=== PATIENT | male | born 1940 | race Caucasian/White ===

== ENCOUNTER 2016-10-14 22:23 | Inpatient (IN) | payer MEDICARE ==
[~2016-10-14] VITALS: Ht 177.8 cm; Wt 74.4 kg
[2016-10-14 23:01] VITALS: BP 192/54
[2016-10-15] MEDS ORDERED: ZESTRIL40 MG PO (01:00)
[2016-10-15] MEDS ORDERED: CIPRO500 MG PO (01:00)
[2016-10-15] MEDS ORDERED: MIRALAX17 GM PO (01:01)
[2016-10-15] MEDS ORDERED: COREG6.25 MG PO (01:02)
[2016-10-15] MEDS ORDERED: PROSCAR5 MG PO (01:02)
[2016-10-15] MEDS ORDERED: GLUCOPHAGE1000 MG PO (01:03)
[2016-10-15] MEDS ORDERED: GLIPIZIDE10 MG PO (01:03)
[2016-10-15] MEDS ORDERED: FERROUS SULFAT325 MG (01:04)
[2016-10-15] MEDS ORDERED: FERROUS SULFAT325 MG PO (01:05)
[2016-10-15] MEDS ORDERED: ALBUTEROL1.25 MG/3 INH (01:06)
[2016-10-15] MEDS ORDERED: BREO ELLIPTA 21 EACH (01:07)
[2016-10-15] MEDS ORDERED: LIPITOR40 MG PO (01:07)
[2016-10-15] MEDS ORDERED: HYDROCHLOROTH12.5 M1 PO (01:07)
[2016-10-15] MEDS ORDERED: ASPIRIN81 MG PO (01:08)
[2016-10-15] MEDS ORDERED: XALATAN 0.0052.5 ML EACH EYE (01:09)
[2016-10-15] MEDS ORDERED: ZOLOFT50 MG PO (01:09)
--- NOTE | 2016-10-15 01:40 | NUR ---
PATIENT ARRIVED VIA EMS FROM [facility] ER COMPLAINTS OF DEPRESSION, CONFUSION AND SUICIDAL IDEATION. ADMITS TO THOUGHTS OF HOPELESSNESS ABOUT THE FUTURE, WITH FEELINGS OF NOT WANTING TO CARRY ON. WHEN ASKED ABOUT THOUGHTS OF SELF HARM, HE SAYS "IT'S A SIN TO KILL YOURSELF" VERBAL CONTRACT MADE THAT PATIENT WILL NOT SELF HARM. PATIENT HAS A RECENT FRACTURE OF LEFT WRIST. WALKS WITHOUT ASSISTANCE BUT HAS DIZZYNESS WITH AN UNSTEADY GAIT. PATIENT IS DISPLAYING AGITATION AT HOSPITALIZATION, RELUCTANT TO GIVE UP CONTRA-BAND PERSONAL EFFECTS. PATIENT IS DIABETIC AND DAILY SMOKER. FULL CODE AND OWN POA.
[2016-10-15 06:15] LABS: BASOPHILS 0.3 % (0.0-2.0); HEMATOCRIT 38.4 % (42.0-54.0); HEMOGLOBIN 12.4 g/dL (13.5-17.5); IMMATURE GRANULOCYTES 0.2 % (0-5); LYMPHOCYTES 18.4 % (15-50); MCH 26.3 pg (26.0-34.0); MCHC 32.3 g/dL (31.0-37.0); MCV 81.4 fL (80.0-100.0); MEAN PLATELET VOLUME 11.8 fL (7.4-10.4); MONOCYTES 15.8 % (2-11); NEUTROPHILS 63.3 % (40-80); PLATELET COUNT 219 10x3/uL (130-400); RBC 4.72 10x6/uL (4.20-6.10); RDW 16.3 % (11.5-14.5); WBC 10.1 10x3/uL (4.8-10.8)
[2016-10-15 06:30] LABS: HEMOGLOBIN A1C 6.2 % (4.8-6.0)
[2016-10-15 07:00] VITALS: BP 137/73
[2016-10-15 07:27] LABS: ALBUMIN 3.7 g/dL (3.4-5.0); ALKALINE PHOSPHATASE 94 U/L (46-116); ALT (SGPT) 40 U/L (10-68); BILIRUBIN - TOTAL 0.26 mg/dL (0.2-1.3); CALC OSMOLALITY 292 mosm/kg (275-300); CALCIUM 9.5 mg/dL (8.5-10.1); CARBON DIOXIDE 27.8 mmol/L (21.0-32.0); CHLORIDE - SERUM 104 mmol/L (98-107); CHOL - HDL RATIO 1.8 ratio (2.3-4.9); CHOLESTEROL, TOTAL 104 mg/dL (0-200); CREATININE - SERUM 0.9 mg/dL (0.6-1.3); GLUCOSE 139 mg/dL (74-106); HDL CHOLESTEROL 57 mg/dL (32-96); LDL CHOLESTEROL 41 mg/dL (0-100); LDL-HDL RATIO 0.7 ratio (1.5-3.5); POTASSIUM - SERUM 4.3 mmol/L (3.5-5.1); PROTEIN - SERUM 7.4 g/dL (6.4-8.2); SODIUM 142 mmol/L (136-145); TRIGLYCERIDE 31 mg/dL (30-200); UREA NITROGEN 34 mg/dL (7-18); eGFR NON AFRICAN AMERICAN 87 mL/min (90-120)
[2016-10-15 19:30] VITALS: BP 165/71
--- NOTE | 2016-10-15 20:33 | NUR ---
RECEIVED THIS AM AMBULATORY IN ROOM.IS ORIENTED TO SELF AND HOSPITAL.DENIES PLAN TO KILL SELF.IS RESTLESS AND WALKS FREQUENTLY FROM ROOM TO ROOM.ASK MULTIPLE TIMES WHEN HE CAN GO BACK TO HIS ROOM.IS COMPLIANT WITH STAFF. DOES NOT INTERACT WITH PEERS.WILL CONTINUE WITH PLAN OF CARE,MONITOR FOR CHANGES AND SAFETY.
--- NOTE | 2016-10-15 22:23 | NUR ---
B) PATIENT IS NEGATIVE AND CONFUSED, HE FOLLOWS THE NURSE ALL AROUND AND KEEPS ASKING "WHEN AM I GETTING OUT OF HERE" EXPLAINED TO HIM THAT HE WILL SEE THE DR. AND THE DR. WILL DECIDE. PATIENT THEN ASKS "CAN I SLEEP IN THE CHAIR OR WHERE AM I GOING TO SLEEP" EXPLAINED TO HIM HE CAN GO TO BED AFTER EVERYONE HAS MEDS. HE SAID "WELL GIVE ME MY MEDS SO I CAN GO" TOLD HIM HE HAS HAD HIS MEDS AND HE CAN GO TO BED SOON. HE SAID "OH YEAH RIGHT, I GUESS I'LL JUST " PATIENT NOT SUICIDAL, BUT HE MAKES COMMENTS ABOUT AND HE IS EXTREMELY CONFUSED. HE HAS NO IDEA WHY HE IS HERE. I) PROVIDE PRESCRIBED MEDS. R) PATIENT IS COMPLIANT WITH MEDS. P) CONTINUE PLAN OF CARE.
[2016-10-16 07:30] LABS: APPEARANCE HAZY (CLEAR); BILIRUBIN NEGATIVE (NEGATIVE); COLOR YELLOW (YELLOW); GLUCOSE NEGATIVE (NEGATIVE); KETONE NEGATIVE (NEGATIVE); NITRITE NEGATIVE (NEGATIVE); PROTEIN 2+ mg/dL (NEGATIVE); SPECIFIC GRAVITY 1.015 (1.005-1.020); UROBILINOGEN NORMAL (NORMAL)
[2016-10-16 07:31] LABS: BACTERIA FEW /hpf (NONE SEEN); EPITHELIAL CELLS 0-5 /hpf (0-5); GRANULAR CAST OCC /lpf (NONE SEEN); HYALINE CAST OCC /lpf (NONE SEEN); LEUKOCYTE ESTERASE TRACE (NEGATIVE); MUCUS >1+ /lpf (NONE SEEN); RED CELLS - URINE 0-5 /hpf (0-5); WHITE CELLS - URINE 0-5 /hpf (0-5)
[2016-10-16 09:12] VITALS: BP 128/61
--- NOTE | 2016-10-16 13:39 | NUR ---
RECEIVED THIS AM AMBULATORY IN [facility].ORIENTED TO PERSON ,HOSPITAL AND YEAR.LESS RESTLESS TODAY AND VISITS WITH STAFF.VOICES CONCERN THAT HE IS GOING TO LOSE HIS APARTMENT AND CONTENTS.REASSURED HIM THINGS WOULD BE OK.DENIES PLANS TO HURT SELF.WILL CONTINUE WITH PLAN OF CARE,MONITOR FOR CHANGES AND SAFETY.
[2016-10-16 15:00] VITALS: Ht 177.8 cm; Wt 74.4 kg
--- NOTE | 2016-10-16 15:05 | NUR ---
Alert and oriented to name and place. Ambulatory on unit, monitored for saety. Calm and cooperative with care. Administer medications and monitor compliance. Enourage verbalization of feeling and monitor for any suicidial ideations. Verbalizes feelings and concerns, no suicidial ideations, contracted for safety. Compliant with medications. Continue plan of care.
--- NOTE | 2016-10-16 20:12 | NUR ---
RECEIVED IN BEDROOM. SITTING ON EDGE OF BED READING BIBLE. CALM AND COOPERATIVE WITH CARE AND ASSESSMENT. DENIES THOUGHTS OF SELF HARM. ENCOURAGE TO EXPRESS NEEDS. PM MEDS GIVEN ORDERED. RESTING IN BED EYES CLOSED AT THIS TIME. CONTINUE PLAN OF CARE
[2016-10-16 20:23] VITALS: BP 131/66
[2016-10-17 06:13] LABS: RAPID PLASMA REAGIN Non Reactive (Non Reactive)
[2016-10-17 08:13] VITALS: BP 130/56
[2016-10-17 08:19] LABS: VITAMIN D 25 HYDROXY 27.1 ng/mL (30.0-100.0)
[2016-10-17 09:15] LABS: FOLATE (FOLIC ACID) - SERUM 17.2 ng/mL (>3.0)
--- NOTE | 2016-10-17 17:36 | NUR ---
PT CONTINUES TO EXPRESS THOUGHTS AND FEELINGS OF WORTHLESSNESS AND HELPLESSNESS. ENCOURAGED PT TO EXPRESS FEELINGS AND EDUCATED ON COPING SKILLS. ORIENTED TO PERSON, PLACE, AND TIME. UNSURE OF SI, STATED, "I JUST DON'T KNOW WHAT I WOULD DO". CONTRACTED FOR SAFETY. FLAT AFFECT. ISOLATED FROM OTHER PTS. WITHDRAWN. DEPRESSION NOTED. MEDICATIONS ADMINISTERED ORDERED. FALL PRECAUTIONS MAINTAINED. WILL CONTINUE TO MONITOR AND CONTINUE WITH PLAN OF CARE.
[2016-10-17 20:13] VITALS: BP 142/74
--- NOTE | 2016-10-17 23:32 | NUR ---
RECEIVED IN HALLWAY. UNSTEADY GAIT. CHECKED FSBS RESULT 33. RETEST OTHER HAND WAS 34. GAVE 500 ML OF ORANGE JUICE AND FOOD TRAY FROM [facility]. RETESTED IN 45 MINUTES AT 72. PATIENT CONTINUED TO EAT HIS BEDTIME SNACKS. CALM AND COOPERATIVE WITH CARE AND ASSESSMENTS. WHEN ASK IF HE WOULD HARM HIMSELF PATIENT WILL NOT RESPOND TO QUESTIONS. ENCOURAGE TO EXPRESS HIMSELF. PM MEDS GIVEN ORDERED. RESTING EYES CLOSED AT THIS TIME. CONTINUE PLAN OF CARE
--- NOTE | 2016-10-18 08:11 | PSY ---
PATIENT NAME:JULIA FREIRE MEDICAL RECORD: [id number] : 42 LOCATION:[facility] ADMISSION DATE: 10/14/16 ACCOUNT: [id number] PSYCHIATRIC EVALUATION DATE OF EVALUATION: 10/16/16 Initial Psychiatric Workup IDENTIFYING DATA: This is the first fdc admission for this 76-year-old single white male. HISTORY OF PRESENT ILLNESS: This patient was admitted on transfer from [facility] Emergency Department. He had come there with primary complaint of depression and feeling hopeless and that he had nothing to look forward to. He did make suicidal statements while in the Emergency Department there. For this reason, he was transferred. He did not express a concrete plan for suicide, but evinced hopelessness, helplessness and feelings of being lost. Since admission, the patient has been fairly cooperative. He, at times, appears to be confused and disoriented, and will simply follow staff members around. The patient states that he has a sister that is in some way trying to manage his care. He says he lives by himself and does not talk to people very often. ATTENDING PHYSICIAN: Fannie Spencer MD PAST MEDICAL HISTORY: Significant for COPD, chronic tobacco use, hypertension, atherosclerotic heart disease, type 2 diabetes, hyperlipidemia, benign prostatic hyperplasia, chronic anemia, and glaucoma. The patient fractured his right wrist 8 weeks ago and is wearing a brace. MEDICATION: At the time of admission included Xalatan, lisinopril, MiraLax, hydrochlorothiazide, Proscar, Lipitor, Glucophage, Levaquin, Coreg, Glucotrol, and Proventil. FAMILY HISTORY: Noncontributory. SOCIAL HISTORY: The patient denies substance abuse problems. He lives by himself. He is a smoker. He is disabled. ALLERGIES: LISTED KLONOPIN. MENTAL STATUS: On interview, the patient is cooperative, but appears confused. He is somewhat disheveled in appearance and does have multiple bruises. Mood is slightly anxious. Affect is a distant, at times flat. Speech is rather tangential. There are frequent word finding pauses and some word substitution. Content of thought focuses primarily on somatic problems, but also there are expressions of hopelessness and helplessness. The patient is oriented to person and the fact that he is in the [facility]. He is not correctly oriented as to the day of the week. He guesses correctly at the year; however, intermediate and short-term recall and concentration, do show significant deficits and long-term recall appears to be intact. DIAGNOSTIC IMPRESSION: AXIS I: Possible Alzheimer dementia, secondary depression. AXIS II: No diagnosis. AXIS III: Type 2 diabetes, hypertension, chronic obstructive pulmonary disease, hyperlipidemia, anemia, glaucoma, recent wrist fracture, and benign prostatic hyperplasia. AXIS IV: Moderate. AXIS V: 32. PLAN: 1. The patient is admitted for medication adjustment as indicated. 2. Further primary care workup. 3. Daily supportive therapy. 4. Coordinate with family and referring M.D. regarding aftercare. TRANSINT:[id number] Voice Confirmation ID: [id number] DOCUMENT ID: [id number] RAGHU MILTON III, MD at 0811 CC: [id number] DICTATION DATE: 10/16/16 1215 PRINTED CIRCUIT BOARD PANELS DEVELOPER: 10/16/16 1552 ADM IN [facility] [address] [place] [address]
--- NOTE | 2016-10-18 08:11 | PN ---
PATIENT:JULIA FREIRE MEDICAL RECORD: [id number] LOCATION:[facility] ADMISSION DATE: 10/14/16 PROGRESS NOTE DATE OF SERVICE: 10/17/2016 SUBJECTIVE: No new complaint. OBJECTIVE: The significant additional history was obtained by case management. The patient does have a past history of alcoholism as well as a history of bipolar disorder. He is . His ex- is still living. He has 3 children from whom he is estranged. He has been hospitalized in the past for depression and at that time, the diagnosis of bipolar depression was made. The patient did undergo neuropsychological testing today, he scored only 6/30 on the [facility] Mental Status exam, indicated a very severe level of impairment, placement will likely be needed. On exam, mood is somewhat dysphoric. Affect rather constricted. Speech is somewhat rambling. Content of thought is negative for overt psychosis. Sensorium shows no change. ASSESSMENT: No change in diagnosis. PLAN: 1. Continue Lexapro 10 mg daily and Namenda 5 mg b.i.d. 2. Continue other medications and supportive therapy. TRANSINT:[id number] Voice Confirmation ID: [id number] DOCUMENT ID: [id number] RAGHU MILTON III, MD at 0811 CC: [id number] DICTATION DATE: 10/17/16 1230 ETCHER MACHINE: 10/17/16 1907 ADM IN [facility] [address] [place] [address]
[2016-10-18 08:36] VITALS: BP 142/70
--- NOTE | 2016-10-18 09:00 | NUR ---
B) Received pt in dining room for breakfast, appetite good, med compliant, takes meds whole without difficulty, metformin and glipizide held per orders d/t decreased blood glucose, pleasant mood, cooperative with group, memory deficits noted, shaved per PCT per patient request. I) Administer medications as ordered, provide group activity as directed. R) No s/s adverse reaction to meds, participates in group discussion and activities. P) Cont plan of care including meds andd group therapy.
[2016-10-18 19:30] VITALS: BP 136/64
--- NOTE | 2016-10-18 21:55 | PN ---
PATIENT:JULIA FREIRE MEDICAL RECORD: [id number] LOCATION:[facility] ADMISSION DATE: 10/14/16 PROGRESS NOTE DATE OF SERVICE: 10/18/2016 SUBJECTIVE: The patient expresses concern about what is going to happen to him. OBJECTIVE: The patient has continued to voice suicidal ideation and expressions of hopelessness. Case management is working on disposition. On exam, mood is dysphoric. Affect constricted. Speech is low in volume. Content of thought is as noted above. Sensorium shows no change. ASSESSMENT: No change in diagnosis. PLAN: 1. Maintain current medications. 2. Continue supportive therapy. TRANSINT:[id number] Voice Confirmation ID: [id number] DOCUMENT ID: [id number] RAGHU MILTON III, MD at 2155 CC: [id number] DICTATION DATE: 10/18/16 1132 LUGGAGE LINER: 10/18/16 1939 ADM IN [facility] [address] [place] [address]
--- NOTE | 2016-10-18 23:52 | NUR ---
B) Recieved patient sitting in the day room, alert and oriented to self and being in a hospital, calm and cooperative with care and assessment I) Administered perscribed medications, redirected as needed, R) Medication compliant resting now quietly in his room, P) Continue plan of care, continue to monitor.
[2016-10-19 09:32] VITALS: BP 142/66
--- NOTE | 2016-10-19 12:16 | NUR ---
(B)RECEIVED PATIENT SITTING IN A CHAIR AT THE NURSES'S STATION. ORIENTED TO SELF, HOSPITAL AND MONTH. RELATES THE REASON FOR HOSPITALIZATION "MY SISTER DIDN'T LIKE THE WAY I WAS TALKING. IF I DIDN'T GET TO SEE HER ANYMORE I WOULD DO THIS OR I'D DO THAT." RELATES HAS THOUGHT OF SUICIDE "A LITTLE BIT." NO ACTUAL PLAN "DO SOMETHING THAT WOULDN'T HURT. I'M A CHICKEN." SPLINT TO RIGHT WRIST AND RELATES "SMASHED" THUMB ON LEFT HAND WITH PART OF THE NAIL MISSING. (I)ADMINISTER MEDS AND MONITOR COMPLIANCE. OBTAIN VERBAL CONTRACT FOR NO SELF HARM. (R)MED COMPLIANT. CONTRACTS VERBALLY FOR NO SELF HARM. (P)CONTINUE POC AND MAINTAIN FALL PRECAUTIONS.
[2016-10-19 20:24] VITALS: BP 142/63
--- NOTE | 2016-10-20 00:08 | NUR ---
PATIENT IN DAYROOM. THE MHT VIJAY, WAS GETTING WATER FOR MEDICATION ADMINISTRATION WHEN HE BECAME AGITATED AND ACCUSED HER OF TRYING TO KILL EVERYONE. HE WAS REORIENTED, THAN BECAME CALM. CONTINUE TO MONITOR
[2016-10-20 09:28] VITALS: BP 178/91
--- NOTE | 2016-10-20 12:33 | NUR ---
B.) Alert and oriented to name and place, flat affect and sad mood, fair eye contact when speaking with nurse this am. " I'm just tired and lazy." I.) Administer prescribed medications and monitor compliance. Monitor for any signs of depression or suicidial ideations, contract for safety. Encourage group participation and verbalization of feelings. Monitor safety. R.) Compliant with medications, little socialization, withdrawn, did participate in group but did not face the group, back was turned. Was asked if he wanted to go take a shower response " exactually what are you going to do,kill me or something." then at another time while going tyo bathroom. " tell me what yall going to do to me, you can be honest with me." patient with suspicious behavior, flat affect. response to suicidal ideations as " I don't know" has no plan in place. Contracted for no self harm. Splint remains in place to right forearm, no neurovascular compromise assessed. P.) Continue with plan of care and encuragement of verbalizind feelings and group participation.
[2016-10-20 21:50] VITALS: BP 127/63
--- NOTE | 2016-10-21 02:43 | NUR ---
B) Recieved patient in the day room, alert and oriented to self, confused and wanders at times, cooperative with staff, I) Administered perscribed medications, monitored for safety and falls, R) Medication compliant, compliant with unit rules, P) Continue plan of care, continue to monitor.
[2016-10-21 09:43] VITALS: BP 135/75
--- NOTE | 2016-10-21 11:57 | PN ---
PATIENT:JULIA FREIRE MEDICAL RECORD: [id number] LOCATION:[facility] ADMISSION DATE: 10/14/16 PROGRESS NOTE DATE OF SERVICE: 10/20/2016 SUBJECTIVE: The patient's case was discussed with staff. He has no new complaint. OBJECTIVE: The patient denies being suicidal, but has a number of paranoid symptoms about people trying to hurt him. ASSESSMENT: No change in diagnoses. PLAN: Current medicines will be maintained. His long-term prognosis is guarded. Supportive and educational interventions were made. TRANSINT:[id number] Voice Confirmation ID: [id number] DOCUMENT ID: [id number] ZANE NGO MD at 1157 CC: [id number] DICTATION DATE: 10/20/16 1445 HOG SCRAPER: 10/20/16 1903 ADM IN [facility] [address] [place] [address]
--- NOTE | 2016-10-21 13:36 | NUR ---
Alert and oriented to name and place. Quiet with flat affect and sad demeanor. Administer medications and monitor compliance. Monitor for any suicidial ideations. Encourage verbalization of feelings and socialization. Maintain safety. Compliant with medications, but did look at cup for a long time and sat cup down several times without taking medications, re educated on medications and then he took. No suicidial ideations, but states " i don't have to somebody else will be killing me they going to do it, they planning something." patient is delusional thinking somebody is out to get him. Refocused him to where he is and why and discharge plans, " yeah, I know my sister put me her because I neede help, but I did'nt think this kind of help." Sits quietly at day room table and does socialize with MHT and then began reading the paper, occasional eye contact and smile noted. Contracted for no self harm. Cooperative with care. Safety maintained.
--- NOTE | 2016-10-21 17:04 | NUR ---
PATIENT IS WORRIED HE WILL NOT GET HIS PLACE AND THEN HE IS PARANOID ABOUT HIS MEDS, HE SMELLS THEM FIRST AND THEN HE TOOK ONE AND MADE A SOUND AFTER. HE IS WATCHFUL AND HE SAYS "NO ONE WANTS ME TO SIT BY THEM, YOU WATCH THEY'LL HUSSEIN ME OFF".
--- NOTE | 2016-10-21 18:11 | NUR ---
PATIENT'S SISTER VISITED AND BROUGHT HIM CLOTHES. NOW HE IS UPSET HE IS PARANOID, HE BELIEVES ALL THE WOMEN TOOK A VOTE TO MUTILATE HIM OR KILL HIM. I STOOD WITH HIM FOR 30 MINUTES TRYING TO REASSURE HIM THAT HE IS GOING TO BE OK, THE INFORMATION HE HAS IS INCORRECT AND HE IS GOING TO BE HERE WITH US UNTIL HIS DISCHARGE. THEN PATIENT WENT ON A TANGENT ABOUT GETTING OUT FOR A WEEK TO GET THINGS DONE. PATIENT IS DIFFICULT TO UNDERSTAND AND HE IS NOT REDIRECTABLE. HE IS CAUTIOS AND PARANOID ABOUT MEDICATIONS, FOODS AND DRINKS.
[2016-10-21 19:30] VITALS: BP 168/88
--- NOTE | 2016-10-22 02:21 | NUR ---
B) Recieved patient ambulating in the day room and dinning room, alert and oriented to self and being in a hospital, calm and cooperative with care and assessment, I) Administered perscribed medications, monitored for falls and safety, R) Medication compliant, resting now qietly in his room, P) Continue plan of care, continue to monitor.
[2016-10-22 07:00] VITALS: BP 147/62
--- NOTE | 2016-10-22 15:15 | NUR ---
PT RECEIVED LYING IN BED. PT APPEARS LETHARGIC. HE DOES LOOK AT ME AND VERBALLY RESPONDS TO DIRECT QUESTIONS. PT IS QUITE AND WITHDRAWN. HE REFUSED BREAKFAST. HE ATE WELL AT LUNCH. PT DENIES PAIN. NO HALLUCNATIONS ARE NOTED. PT HAS HAD SOME DELUSIONS THIS SHIFT. HE STATES "THEY ARE GOING TO HURT ME" PT WILL NOT ELLABORATE ON WHO HE THINKS IS WANTING TO HURT HIM OR WHY HE THINKS IT. PT IS REDIRECTED AND REORIENTED NEEDED. NO AGGRESSION NOTED. PT IS COOPERATIVE WITH STAFF AND IS COMPLIANT WITH MED'S AND CARE. SAFETY MEASURES ARE IMPLEMENTED. WILL CONTINUE WITH PLAN OF CARE. WILL CONTIUE TO MONITOR.
[2016-10-22 19:30] VITALS: BP 162/88
--- NOTE | 2016-10-22 20:58 | NUR ---
RECEIVED IN DAYROOM. SITTING AT TABLE IN WHEELCHAIR. WHEN ASK ABOUT SELF HARM STATES DEPENDS IF HE HAS TO GO BACK UNDER THE KNIE. REFERRING TO SURGERY. THINKS HE IS GOING TO HAVE A SURGERY ON HIS PROSTATE TONIGHT. STATES HE HAS ALREADY HAD TWO BEFORE. REIFORCE THAT HE IS NOT HAVING ANY SURGERY TODAY AND WOULD CHECK AND SEE IF ANYTHING HAS BEEN PUT IN HIS CHART. CONTINUES TO SIT IN WHEELCHAIR AT TABLE. CONTINUE PLAN OF CARE
[2016-10-23 08:08] VITALS: BP 121/62
--- NOTE | 2016-10-23 10:30 | PN ---
PATIENT:JULIA FREIRE MEDICAL RECORD: [id number] LOCATION:[facility] ADMISSION DATE: 10/14/16 PROGRESS NOTE DATE OF SERVICE: 10/19/2016 SUBJECTIVE: No new complaint. OBJECTIVE: The patient remains withdrawn with a consistently flat affect. He continues to voice expressions of hopelessness and thoughts of . He is very concerned about his situation in particular his relationship with his sister. On exam, mood is dysphoric. Affect is constricted. Speech is low in volume and somewhat tangential. Content of thought as noted above. Sensorium is unchanged. ASSESSMENT: No change in diagnosis. PLAN: 1. We will maintain current medication regimen. 2. Continue supportive therapy. 3. Continue working on aftercare issues. TRANSINT:[id number] Voice Confirmation ID: [id number] DOCUMENT ID: [id number] RAGHU MILTON III, MD at 1030 CC: [id number] DICTATION DATE: 10/19/16 1206 CORRECTION OFFICER PENITENTIARY: 10/19/16 1612 ADM IN [place] [id number] [place] [address]
--- NOTE | 2016-10-23 12:20 | NUR ---
Patient sister Kasandra Shin, present to obtain patient belongings from security, due to need to have patient information to sign him into [facility] and to move belongings from his apartment, ok per patient for her to do so to get all arrangements together. Belongings signed for and released.
--- NOTE | 2016-10-23 16:30 | NUR ---
Received patient this am alert and oriented to name only, flat affect and scanning vision. Administer medications and monitor compliance, monitor for any signs of worsening depression and suicidial ideations. Encourage group participation. Provide one on one time to verbalize fellings. Contract for safety. Monitor safety. Compliant with medications, flat affect with paranoia behavior, makes states such as" i'm not worth anything" " they going to get me anyway." Yall not going to do it to me, I'm not having any surgery, I mean no" Nobody wants me around." isolating during meal time, encouraged patient and directed him to sit with others " they do't want me there." with encouragement patient did eat meals with other peers, no socialization. When provided one on one, he kept insisting we have tricked him into having some sort of surgery and he is mad about it, unable to refocus him to reality versus nonreality. Patient would not answer question regarding if any suicidial ideations, just had a blank stare, but did contract for safety. Safety maintained and monitored throughout the day. Continue plan of care.
--- NOTE | 2016-10-23 16:58 | PN ---
PATIENT:JULIA FREIRE MEDICAL RECORD: [id number] LOCATION:[facility] ADMISSION DATE: 10/14/16 PROGRESS NOTE DATE OF SERVICE: 10/23/2016 SUBJECTIVE: The patient states just waiting to see what they do with me. OBJECTIVE: Staff reports the patient continues to show some paranoid ideation regarding staff from time to time. He tends to make nihilistic statements, but denies suicidal ideation. On exam, mood appears dysphoric and anxious. Affect very constricted. Speech is low in volume and shows frequent latency. Content of thought as noted above. Sensorium unchanged. ASSESSMENT: No change in diagnosis. PLAN: 1. Discontinue Lexapro. 2. Begin Cymbalta 60 mg daily. 3. Continue other medications and supportive therapy. TRANSINT:[id number] Voice Confirmation ID: [id number] DOCUMENT ID: [id number] RAGHU MILTON III, MD at 1658 CC: [id number] DICTATION DATE: 10/23/16 1151 CLERICAL OFFICE WORKER: 10/23/16 1418 ADM IN [place] [id number] [place] [id number]
[2016-10-23 20:00] VITALS: BP 136/57
--- NOTE | 2016-10-23 21:15 | NUR ---
RECEIVED IN DAYROOM. SITTING IN CHAIR. CALM AND COOPERATIVE WITH CARE AND ASSESSMENT. SOCIALIZING WITH STAFF AND PEERS AT TIMES. CONFUSED. WHEN ASK ABOUT SELF HARM HE TALKED ABOUT INSURANCE PAYING HIS BILLS AND NEVER WOULD ANSWER ABOUT SELF HARM. ENCOURAGE TO EXPRESS NEEDS. CONTINUES TO SIT IN CHAIR AT TABLE WITH STAFF AND PEERS.
[2016-10-24 09:06] VITALS: BP 131/55
--- NOTE | 2016-10-24 11:00 | NUR ---
Received this am alert and oriented to name and some what to place. Flat affect. Quiet but cooperative. Administer medications and monitors compliance and effectiveness. Monitor for any signs of suicidial ideations. Encourage verbalization of feeling and provide patient with one on one time. Compliant with medications. Isolated at table and would not talk much with nurse or staff today. Tired and sleepy. Contracted for safety. Safety maintained.
--- NOTE | 2016-10-24 21:26 | NUR ---
RECEIVED IN DAYROOM. SITTING AT TABLE IN WHEELCHAIR. CALM AND COOPERATIVE WITH CARE AND ASSESSMENT. CONFUSED. WHEN ASK ABOUT SELF HARM HE STATED. "DEPENDS ON WHAT THEY DO TO ME. THEY CAME UP LAST NIGHT AND CUT OFF PART OF MY PENIS." REDIRECTED AND REORIENTED. ENCOURAGE TO EXPRESS NEEDS. CONTINUES TO SIT QUIETLY AT TABLE. CONTINUE PLAN OF CARE
[2016-10-24 22:33] VITALS: BP 133/56
--- NOTE | 2016-10-25 10:19 | NUR ---
Nutrition Follow Up: Chart reviewed. Pt is eating 63% meal avg on a regular diet. +BM 10/23/16. No new wt to assess. Labs noted - Glucose WNL for most part. Meds noted including Metformin. Pt with fair po intake at this time. Rec continue current diet. Will continue to provide selective menus and honor food preferences. RD following.
--- NOTE | 2016-10-25 14:44 | NUR ---
B.) Received this am alert and oriented to name only. Flat affect. I.) Administer medications and monitor compliance. Monitor for sign of worsening depression and suicidial ideations. Encourage to verbalize feelings. R.) Compliant with medications, flat affect with little verbalization with staff and peers, will not answer question regarding suicidial ideations and miladis for safety. Delusional, Voice became pressured and patient became irritated, stating " I'm tired of yall cutting on me for nothing, somebody did it, you know who!" Unable to refocus patient to reality the fact that he has not had any surgery. No evidence of reorietation. Safety maintained. P.) Continue plan of care.
[2016-10-25 20:00] VITALS: BP 147/67
--- NOTE | 2016-10-26 00:01 | NUR ---
B) Recieved patient in the day room, alert and oriented to self and hospital, paranoid and confused, restless at times, anxious to go home, worried about his living arrangements after discharge, I) Administered perscribed medications, monitored for safety, R) Medication compliant, resting quietly in bed, P) Continue plan of care,
[2016-10-26 09:05] VITALS: BP 145/70
--- NOTE | 2016-10-26 10:26 | PN ---
PATIENT:JULIA FREIRE MEDICAL RECORD: [id number] LOCATION:[facility] ADMISSION DATE: 10/14/16 PROGRESS NOTE DATE OF SERVICE: 10/24/2016 SUBJECTIVE: No new complaint. OBJECTIVE: The patient continues to speak in very equivocal terms about whether or not he was having thoughts of suicide. At times, he is more fluent and coherent. At other times, shows frankly loosened associations and very rambling speech. He is tolerating his medications quite well. No agitation or combativeness. On exam, mood is somewhat dysphoric. Affect is constricted. Speech is very terse. Content of thought is essentially unchanged. No evidence of acute suicidality. Sensorium is unchanged. ASSESSMENT: No change in diagnosis. PLAN: 1. Maintain current medications. 2. Continue supportive therapy. TRANSINT:[id number] Voice Confirmation ID: [id number] DOCUMENT ID: [id number] RAGHU MILTON III, MD at 1026 CC: [id number] DICTATION DATE: 10/24/16 1221 SHOPPING INVESTIGATOR: 10/24/16 1235 ADM IN [facility] [address] [place] [address]
--- NOTE | 2016-10-26 14:31 | PN ---
PATIENT:JULIA FREIRE MEDICAL RECORD: [id number] LOCATION:[facility] ADMISSION DATE: 10/14/16 PROGRESS NOTE DATE OF SERVICE: 10/25/2016 SUBJECTIVE: The patient's case was discussed with staff. He has no new complaint. OBJECTIVE: The patient is disorganized with limited insight about his condition. He ambulates independently and is still quite paranoid. ASSESSMENT: No change in diagnoses. PLAN: Supportive and educational interventions were made. Medications were reviewed. Long-term prognosis is guarded. TRANSINT:[id number] Voice Confirmation ID: [id number] DOCUMENT ID: [id number] ZANE NGO MD at 1431 CC: [id number] DICTATION DATE: 10/25/16 1431 TEAM TRUCK DRIVER: 10/25/16 1543 ADM IN [place] [id number] [place] [address]
--- NOTE | 2016-10-26 14:47 | NUR ---
(B)RECEIVED PATIENT SITTING IN A CHAIR AT THE NURSE'S STATION. ORIENTED TO SELF ONLY. ASKED PATIENT HOW HE IS FEELING AND PATIENT RELATES "NOT TO GOOD. THIS PLACE HAS A ATTITUDE AND IS GIVING ME ONE TOO." RELATES REASON FOR HOSPITALIZATION "CAN'T TAKE CARE OF MYSELF GOOD ENOUGH." INQUIRED IF HAVING THOUGHTS OF HURTING SELF AND PATIENT REALTES "ALITTLE BIT CAUSE I DON'T HAVE THE STUFF TO KEEP MYSELF CLEAN." PREOCCUPIED WITH HYGIENE AEB "CAN'T KEEP CLEAN SO I STAY TO MYSELF." DELUSIONAL " THEY SAID I USED THEM WOMEN. I HADN'T BEEN ABLE TO BE WITH A WOMAN IN 25 YEARS. I GOT CUT DOWN THERE BECAUSE OF IT." PARANOID AND WOULD NOT GO TO LUNCH RELATING "THEY DON'T WANT ME IN THERE." (I)ADMINISTER MEDS AND MONITOR COMPLIANCE. REFOCUS WITH REALITY BASED INFORMATION FOR DELUSIONAL THOUGHTS AND PREOCCUPATION WITH HYGIENE. (R)MED COMPLIANT. POOR REFOCUSING DUE TO IMPAIRED ABILITY TO SEPARATE REALITY FROM FANTASY. (P)CONTINUE POC AND MAINTAIN FALL PRECAUTIONS.
[2016-10-26 19:30] VITALS: BP 140/57
--- NOTE | 2016-10-26 22:07 | PN ---
PATIENT:JULIA FREIRE MEDICAL RECORD: [id number] LOCATION:[facility] ADMISSION DATE: 10/14/16 PROGRESS NOTE DATE OF SERVICE: 10/26/2016 SUBJECTIVE: The patient is stating that he is worried that he cannot be accepted to [facility] "because they forgot about me." OBJECTIVE: The patient continues to show some paranoid ideation and requires redirection from this. He has not been combative. He denies overtly the desire to harm himself. On exam, mood remains dysphoric. Affect is constricted. Speech is low in volume. Content of thought is still positive for nonspecific paranoid ideation. Sensorium shows no change. ASSESSMENT: No change in diagnosis. PLAN: 1. Add Abilify 10 mg at bedtime. 2. Continue Cymbalta 60 mg daily. 3. Continue other medications and supportive therapy. TRANSINT:[id number] Voice Confirmation ID: [id number] DOCUMENT ID: [id number] RAGHU MILTON III, MD at 2207 CC: [id number] DICTATION DATE: 10/26/16 1150 MEDICAL RECORDS AUDITOR: 10/26/16 1423 ADM IN [facility] [address] [place] [id number]
--- NOTE | 2016-10-27 01:37 | NUR ---
B) Recieved sitting in the day room, alert and withdrawn, confused, paranoid, thinks people want to cut on him, I) Administered perscribed medications, monitored for safety, R) Medication compliant, resting quietly ow, P) Continue plan of care.
[2016-10-27 08:42] VITALS: BP 144/70
--- NOTE | 2016-10-27 14:44 | NUR ---
(B)RECEIVED PATIENT SITTING IN A CHAIR IN HIS ROOM. ORIENTED TO SELF AND PLACE. RELATES THE REASON FOR HOSPITALIZATION IS "MY SISTER SAID I WAS TRYING TO DO SOMETHING TO MYSELF." PATIENT RELATES HE HAD THOUGHTS ABOUT IT HOWEVER NO PLAN. PATIENT STATES "SLIGHTLY" WHEN ASKED IF HAVING CURRENT THOUGHTS OF WANTING TO HARM SELF. THE REASON BEING "CAUSE THE WAY THINGS ARE GOING. NO MATTER WHAT YOU DO ALL SCREWED UP." PLAN STATED BY PATIENT "WEAPON OF SOME KIND. PROBABLY A FIREARM. DON'T KEEP'EM ANYMORE. I DON'T EVEN [place]." (I)ADMINISTER MEDS AND MONITOR COMPLIANCE. OBTAIN VERBAL CONTRACT FOR NO SELF HARM. (R)MED COMPLIANT. VAGUELY CONTRACTS AEB "YEAH I GUESS" WHEN OBTAINING VERBAL NO HARM CONTRACT. (P)CONTINUE POC AND MAINTAIN FALL PRECAUTIONS.
[2016-10-27 19:30] VITALS: BP 147/82
--- NOTE | 2016-10-27 20:45 | NUR ---
B) RECEIVED IN DAYROOM SITTING AT TABLE QUIETLY. CONFUSED AND CALM. NO SIGNS OF AGGRESSION NOTED. I) VSS. ADMINISTER MEDS AND MONITOR FOR SAFETY. R) MEDICATION COMPLIANT. P) CONTINUE PLAN OF CARE.
[2016-10-28 07:44] VITALS: BP 141/64
--- NOTE | 2016-10-28 14:11 | NUR ---
(B)RECEIVED PATIENT SITTING IN A CHAIR AT THE NURSE'S STATION. ORIENTED TO SELF AND PLACE. RELATES HOSPITALIZED "MAYBE CAUSE I WAS THREATENING HARM TO MYSELF AND MY SISTER TURNED IT IN." CONTINUES TO REPORT SI "ALITTLE" IF I DON'T STAY HOSPITALIZED I DON'T HAVE A PLACE TO GO. SOCIALLY WITHDRAWN AND DOES NOT INITIATE CONVERSATION. (I)ADMINISTER MEDS AND MONITOR COMPLIANCE. REORIENT NEEDED. (R)MED COMPLIANT. POOR REORIENTATION DUE TO IMPAIRED ABILITY TO COMPREHEND, PROCESS AND RETAIN INFORMATION. REMAINS SOCIALLY WITHDRAWN. (P)CONTINUE POC AND MAINTAIN FALL PRECAUTIONS.
[2016-10-28 19:40] VITALS: BP 145/101
--- NOTE | 2016-10-28 22:10 | NUR ---
B) Quiet, flat affect, sullen, depressed. Reportedly intermittent SI on previous shift but denies at this time although is very sad. No delusional or paranoid statements made thus far this shift. I) Administer medications as ordered, monitor behavior, assess for SI risk, redirect and reorient PRN, offer emotional reassurance and to express feelings openly and honestly. R) Compliant with medication, remains very depressed, poor concentration. P) Monitor per plan of care.
--- NOTE | 2016-10-29 06:18 | PN ---
PATIENT:JULIA FREIRE MEDICAL RECORD: [id number] LOCATION:[facility] ADMISSION DATE: 10/14/16 PROGRESS NOTE DATE OF SERVICE: 10/27/2016 SUBJECTIVE: No new complaint. OBJECTIVE: The patient continues to isolate himself. He is very pessimistic and exhibits paranoid ideation; however, he is cooperative. On exam, mood is dysphoric. Affect constricted. Speech is rather terse. Content of thought is positive for expressions of helplessness and hopelessness. Sensorium shows no change. ASSESSMENT: No change in diagnosis. PLAN: 1. Continue current treatment plan. 2. Continue supportive therapy. TRANSINT:[id number] Voice Confirmation ID: [id number] DOCUMENT ID: [id number] RAGHU MILTON III, MD at 0618 CC: [id number] DICTATION DATE: 10/27/16 1237 ARMHOLE RAISER LOCKSTITCH: 10/27/16 2112 ADM IN [place] [place] [address]
[2016-10-29 07:48] VITALS: BP 147/61
--- NOTE | 2016-10-29 18:23 | NUR ---
ORIENTED TO PERSON AND PLACE.RESPONDS WITH"I'M SLIGHTLY THINKING ABOUT HURTING MYSELF.MY DADDY FROM A GUN BUT I DON'T HAVE ONE"VOICED CONCERNS OVER NOT KNOWING WHERE HE IS GOING TO LIVE.INFORMED HIM THE PLAN IS [facility].HE VOICES HIS WISH TO GO THERE.STATE"THEY HAVE A COURTYARD WHERE YOU CAN GO OUTSIDE AND WALK."IS COMPLIANT WITH MEDS.BRACE INTACT TO RT WRIST.KEEPS TO SELF.APPETITE GOOD.WILL CONTINUE WITH PLAN OF CARE,MONITOR FOR SAFETY AND CHANGES.
[2016-10-29 19:30] VITALS: BP 143/82
--- NOTE | 2016-10-30 02:11 | NUR ---
PATIENT IN ROOM, LAYING IN BED. COMPLIANT WITH MEDICATION AND CALM. WHEN ASKED ABOUT THOUGHTS OF UPCOMING DISCHARGE, PATIENT WAS REFLECTIVE AND SAID "WELL IF I CAN GET THROUGH ALL THIS B.S. AND NOT GET KICKED ONTO THE STREETS." PATIENT WAS ASSURED THAT WOULD NOT HAPPEN. PATIENT HAS SOME NEGATIVE RESPONSES BUT ALL OVER DEMEANER HAS IMPROVED. PATIENT WAS ACTUALLY PLEASANT AND SAID THANK YOU. CONTINUE TO MONITOR. CONTINUE PLAN OF CARE.
[2016-10-30 07:46] VITALS: BP 139/57
--- NOTE | 2016-10-30 08:45 | PN ---
PATIENT:JULIA FREIRE MEDICAL RECORD: [id number] LOCATION:[facility] ADMISSION DATE: 10/14/16 PROGRESS NOTE DATE OF SERVICE: 10/29/2016 SUBJECTIVE: No new complaint. OBJECTIVE: The patient continues to be rather reclusive. He makes frequent pessimistic statements. On exam, mood is rather dour. Affect is constricted. Speech is low in volume and somewhat tangential. Content of thought is unchanged. Sensorium is unchanged. ASSESSMENT: No change in diagnosis. PLAN: 1. Continue current treatment plan including current medications. 2. Continue supportive therapy. TRANSINT:[id number] Voice Confirmation ID: [id number] DOCUMENT ID: [id number] RAGHU MILTON III, MD at 0845 CC: [id number] DICTATION DATE: 10/29/16828 OIL RAG WASHER: 10/29/16 1048 ADM IN [place] [address] [place] [id number]
--- NOTE | 2016-10-30 16:00 | NUR ---
B.) Alert and oriented to name and place. Cooperative with assessment and made good eye contact. I.) Administer medications and monitor compliance. Monitor for any suicidial ideations. Encourage group participation, provide one on one time to express feelings. Monitor safety. R) Compliant with medications, when asked regarding suicidial ideations response " just alittle" has no plan, " just want to get to a better place." Conversed with staff today and smiled some, read paper and particpated in group. Intiated conversation with staff this pm. Safety maintained. P.) Continue plan of care.
[2016-10-30 20:00] VITALS: BP 125/55
--- NOTE | 2016-10-30 20:14 | NUR ---
RECEIVED IN DAYROOM. SITTING IN CHAIR. CALM AND COOPERATIVE WITH CARE AND ASSESSMENTS. STATES THAT HE WOULD ONLY HARM HIMSELF IF THINGS DIDNT GO GOOD. SOCIAL WITH STAFF BUT CONFUSED. ENCOURAGE TO EXPRESS NEEDS. CONTINUES TO SIT IN CHAIR WITH STAFF AT HIS SIDE. CONTINUE PLAN OF CARE
[2016-10-31 07:25] VITALS: BP 141/59
--- NOTE | 2016-10-31 10:19 | PN ---
PATIENT:JULIA FREIRE MEDICAL RECORD: [id number] LOCATION:[facility] ADMISSION DATE: 10/14/16 PROGRESS NOTE DATE OF SERVICE: 10/30/2016 SUBJECTIVE: The patient still expresses concern about the financial arrangements in terms of his getting in to [facility]. OBJECTIVE: The patient was again reassured that everything has been taking care of. He has had some suicidal statements over the weekend, but no evidence of intent or plan. The patient is cooperative. On exam, mood is initially dysphoric, but as the conversation progresses becomes more euthymic and in fact the patient smile several times. Affect is still constricted. Speech tends to be low in volume and somewhat terse. Content of thought as noted above. Sensorium shows no change. ASSESSMENT: No change in diagnosis. PLAN: 1. Continue current medications. 2. Add Wellbutrin-XL 300 mg daily. 3. Continue supportive therapy. TRANSINT:[id number] Voice Confirmation ID: [id number] DOCUMENT ID: [id number] RAGHU MILTON III, MD at 1019 CC: [id number] DICTATION DATE: 10/30/16 1051 HOTEL OR MOTEL MANAGER: 10/30/16 1504 ADM IN [facility] [address] [place] [id number]
[2016-10-31] MEDS ORDERED: ABILIFY10 MG PO (11:25)
[2016-10-31] MEDS ORDERED: CYMBALTA30 MG PO (11:25)
[2016-10-31] MEDS ORDERED: WELLBUTRIN XL150 M1 PO (11:25)
[2016-10-31] MEDS ORDERED: NAMENDA5 MG PO (11:26)
[2016-10-31] MEDS ORDERED: COLACE100 MG PO (11:26)
--- NOTE | 2016-10-31 12:45 | NUR ---
(B)RECEIVED PATIENT SITTING IN A CHAIR AT THE NURSE'S STATION. ORIENTED TO SELF, HOSPITAL, AND MONTH AND DATE. RELATES REASON FOR HOSPITALIZATION "EXPRESSED TO MY SISTER I WAS GOING TO DO SOMETHING TO MYSELF AND SHE REPORTED IT." WHEN ASKED PATIENT IF STLL HAVING THOUGHTS OF HURTING SELF AND REPLIES "I JUST WANT TO GET OUT OF THIS MESS I'M IN." (I)ADMINISTER MEDS AND MONITOR COMPLIANCE. OBTAIN VERBAL CONTRACT FOR NO SELF HARM. (R)MED COMPLIANT. CONTRACTS VERBALLY FOR NO SELF HARM. (P)CONTINUE POC AND MAINTAIN FALL PRECAUTIONS.
[2016-10-31 19:16] VITALS: BP 132/59
--- NOTE | 2016-10-31 20:04 | NUR ---
RECEIVED IN DAYROOM AT TABLE WITH STAFF AND PEERS. WATCHING TV AT TIMES. WHEN ASK ABOUT SELF HARM STATES "NOT RIGHT NOW." TALKING OUT BEING DISCHARGED TOMORROW. ENCOURAGE TO EXPRESS NEEDS. CONTINUE PLAN OF CARE
[2016-11-01 08:06] VITALS: BP 148/54
--- NOTE | 2016-11-01 10:21 | PN ---
PATIENT:JULIA FREIRE MEDICAL RECORD: [id number] LOCATION:[facility] ADMISSION DATE: 10/14/16 PROGRESS NOTE DATE OF SERVICE: 10/31/2016 SUBJECTIVE: No new complaint. OBJECTIVE: The patient has continued to do well. No further suicidal statements. The patient is interacting much better. On exam, mood is euthymic. Affect is somewhat constricted. Speech is somewhat more fluent. Content of thought is negative for suicidality. Sensorium unchanged. ASSESSMENT: No change in diagnosis. PLAN: 1. Maintain current treatment plan. 2. Anticipate discharge tomorrow. TRANSINT:[id number] Voice Confirmation ID: [id number] DOCUMENT ID: [id number] RAGHU MILTON III, MD at 1021 CC: [id number] DICTATION DATE: 10/31/161136 DIESEL LOCOMOTIVE FIRER/FIREMAN: 10/31/[address] [facility] [address] [place] [address]
--- NOTE | 2016-11-01 19:16 | NUR ---
(B)RECEIVED PATIENT SITTING IN A CHAIR AT THE NURSE'S STATION. ORIENTED TO SELF, HOSPITAL, MONTH AND SITUATION. MORE SOCIAL THIS AM. INTERACTING WITH PEERS. SMILES AND WILL MAKE A JOKE. RELATES IS HERE DUE TO MAKING A STATEMENT OF WANTING TO HURT HIMSELF AND HIS SISTER REPORTED IT. (I)ADMINISTER MEDS AND MONITOR COMPLIANCE. OBTAIN VERBAL CONTRACT FOR NO SELF HARM. (R)MED COMPLIANT. CONTRACTS VERBALLY FOR NO SELF HARM. (P)CONTINUE POC AND MAINTAIN FALL PRECAUTIONS.
[2016-11-01 20:39] VITALS: BP 129/64
--- NOTE | 2016-11-02 00:43 | NUR ---
B) Recieved patient sitting in the day room, alert and oriented to self and being in a hospital, worried about his future arrangements, I) Administered perscribed medications, monitored for falls and safety, redirected as needed, reassured him that he was leaving tomorrow, R) Medication compliant, worried about his clothing P) Continue plan of care, continue to monitor,
--- NOTE | 2016-11-02 03:55 | DS ---
PATIENT:JULIA FREIRE :[birth year] MEDICAL RECORD: [id number] DISCHARGE SUMMARY ADMISSION DATE: 10/14/16 DISCHARGE DATE: DATE OF ADMISSION: 10/14/2016 DATE OF DISCHARGE: 11/01/2016 HISTORY OF PRESENT ILLNESS: First [facility] admission for this 76-year-old single white male. The patient was admitted from [facility]. He had exhibited severe depression and expressions of hopelessness and suicidality. The patient also gave evidence of significant memory change as well. For further details, please see previously dictated history. COURSE IN THE HOSPITAL: The patient was seen in consultation by Dr. Hanson who noted the presence of COPD, hypertension, atherosclerotic heart disease, type 2 diabetes, hyperlipidemia, benign prostatic hypertrophy, anemia, glaucoma and recent fracture of the right wrist 8 weeks prior to admission. From the outset, the patient presented a treatment challenge because of his extreme dysphoria and pessimism. He exhibited moderate delusional ideation, probably secondary to his profound depression. He did give clear-cut evidence of dementia as evidenced by neuropsychological testing. In terms of treatment for his depression, he was started on Cymbalta 60 mg daily. At a later time Abilify 10 mg at bedtime was added for an enhanced antidepressant effects, still later Wellbutrin-XL 300 mg was added. Following this final medication adjustment, the patient began to show significantly elevated mood. He was much more engaging and cooperative with staff and most importantly no longer made suicidal statements. The patient was free of nihilistic or suicidal statements for about 5 days prior to discharge. The patient was maintained on other nonpsychiatric medications including Colace, Xalatan eyedrops, MiraLax, Lisinopril 40 mg daily for hypertension, hydrochlorothiazide 12.5 mg daily, Proscar 5 mg daily, Lipitor 40 mg daily, aspirin 81 mg daily, Glucophage 1000 mg twice a day, Coreg 6.25 mg twice a day and albuterol inhaler on a p.r.n. basis. Considerable effort was expended in getting the patient admitted to a local jail. By the time of discharge, the patient was stable. FINAL DIAGNOSES: AXIS I: Vascular dementia, major depressive disorder. AXIS II: No diagnosis. AXIS III: Type 2 diabetes, hypertension, chronic obstructive pulmonary disease, hyperlipidemia, anemia, glaucoma, recent wrist fracture, benign prostatic hyperplasia. AXIS IV: Moderate. AXIS V: 40. PLAN: 1. The patient is discharged on current medications. 2. Diet and activities as tolerated. 3. Follow up with primary care physician assigned to the jail. TRANSINT:[id number] Voice Confirmation ID: [id number] DOCUMENT ID: [id number] DISCHARGE SUMMARY REPORT [id number] JULIA FREIRE III, RAGHU Lozoya MD at 0355 CC: [id number] DICTATION DATE: 11/01/161119 COPYING MACHINE MECHANIC: 11/02/16 0124 ADM IN [facility] [address] [place] [id number]
--- NOTE | 2016-11-02 07:48 | NUR ---
REPORT CALLED TO JOVANI CRUM LPN. DISCHARGE PAPERWORK SIGNED.
--- NOTE | 2016-11-02 08:00 | NUR ---
(B)RECEIVED PATIENT SITTING IN A CHAIR AT THE NURSE'S STATION. ORIENTED TO SELF AND PLACE. COOPERATIVE WITH DISCHARGE PLANS. SOCIAL AND PLEASANT AFFECT. CALM AND COOPERATIVE. (I)ADMINISTER MEDS AND MONITOR COMPLIANCE, OBTAIN VERBAL CONTACT FOR NO SELF HARM. (R)MED COMPLIANT. CONTRACTS VERBALLY FOR NO SELF HARM. (P)CONTINUE POC.
--- NOTE | 2016-11-03 13:38 | PN ---
PATIENT:JULIA FREIRE MEDICAL RECORD: [id number] LOCATION:[facility] ADMISSION DATE: 10/14/16 PROGRESS NOTE DATE OF SERVICE: 11/02/2016 SUBJECTIVE: The patient's case was discussed with staff. He has no new complaint. OBJECTIVE: The patient is in good behavioral control with limited insight about his condition. ASSESSMENT: No change in diagnoses. PLAN: The patient will be transitioned out of the hospital today. He has no symptoms that represent a significant risk to himself or others, but his cognitive impairment does require significant supervision. TRANSINT:[id number] Voice Confirmation ID: [id number] DOCUMENT ID: [id number] ZANE NGO MD at 1338 CC: [id number] DICTATION DATE: 11/02/16 1255 LOCKER ATTENDANT: 11/02/16 1455 DIS IN 11/02/16 [facility] [address] [place] [address]
== END 2016-11-02 09:30 | DRG 881 ==
LOC: D.PSYCH 22:23
PROVIDERS: ADMIT Psychiatry & Neurology Psychiatry
DX: F32.9 Major depressive disorder, single episode, unspecified (principal); G30.9 Alzheimer's disease, unspecified; F02.80 Dementia in other diseases classified elsewhere, unspecified severity, without behavioral disturbance, psychotic disturbance, mood disturbance, and anxiety; F01.50 Vascular dementia, unspecified severity, without behavioral disturbance, psychotic disturbance, mood disturbance, and anxiety; I25.10 Atherosclerotic heart disease of native coronary artery without angina pectoris; K59.00 Constipation, unspecified; D64.9 Anemia, unspecified; N40.0 Benign prostatic hyperplasia without lower urinary tract symptoms; H40.9 Unspecified glaucoma; E11.40 Type 2 diabetes mellitus with diabetic neuropathy, unspecified; J44.9 Chronic obstructive pulmonary disease, unspecified; E78.5 Hyperlipidemia, unspecified; I10 Essential (primary) hypertension; K64.9 Unspecified hemorrhoids; Z72.0 Tobacco use

== ENCOUNTER 2016-11-08 16:30 | Inpatient (IN) | payer MEDICARE ==
[~2016-11-08] VITALS: Ht 177.8 cm; Wt 70.3 kg
[~2016-11-08 16:30] MED LIST: ABILIFY10 MG PO; ALBUTEROL1.25 MG/3 INH; ASPIRIN81 MG PO; BREO ELLIPTA 21 EACH; CIPRO500 MG PO; COLACE100 MG PO; COREG6.25 MG PO; CYMBALTA30 MG PO; FERROUS SULFAT325 MG; FERROUS SULFAT325 MG PO; GLIPIZIDE10 MG PO; GLUCOPHAGE1000 MG PO; HYDROCHLOROTH12.5 M1 PO; LIPITOR40 MG PO; MIRALAX17 GM PO; NAMENDA5 MG PO; PROSCAR5 MG PO; WELLBUTRIN XL150 M1 PO; XALATAN 0.0052.5 ML EACH EYE; ZESTRIL40 MG PO; ZOLOFT50 MG PO
[2016-11-08 17:35] LABS: BASOPHILS 0.1 % (0.0-2.0); HEMATOCRIT 36.7 % (42.0-54.0); HEMOGLOBIN 11.9 g/dL (13.5-17.5); IMMATURE GRANULOCYTES 0.2 % (0-5); LYMPHOCYTES 8.7 % (15-50); MCH 26.6 pg (26.0-34.0); MCHC 32.4 g/dL (31.0-37.0); MCV 81.9 fL (80.0-100.0); MEAN PLATELET VOLUME 11.3 fL (7.4-10.4); MONOCYTES 9.7 % (2-11); NEUTROPHILS 80.3 % (40-80); PLATELET COUNT 214 10x3/uL (130-400); RBC 4.48 10x6/uL (4.20-6.10); RDW 15.2 % (11.5-14.5); WBC 12.3 10x3/uL (4.8-10.8)
[2016-11-08 17:52] LABS: ALBUMIN 2.6 g/dL (3.4-5.0); ALKALINE PHOSPHATASE 86 U/L (46-116); ALT (SGPT) 42 U/L (10-68); BILIRUBIN - TOTAL 0.34 mg/dL (0.2-1.3); CALC OSMOLALITY 292 mosm/kg (275-300); CALCIUM 9.4 mg/dL (8.5-10.1); CHLORIDE - SERUM 104 mmol/L (98-107); POTASSIUM - SERUM 4.2 mmol/L (3.5-5.1); PROTEIN - SERUM 6.9 g/dL (6.4-8.2); SODIUM 142 mmol/L (136-145); UREA NITROGEN 25 mg/dL (7-18); eGFR NON AFRICAN AMERICAN 77 mL/min (90-120)
[2016-11-08 17:56] LABS: GLUCOSE 204 mg/dL (74-106)
[2016-11-08 18:02] LABS: CHOL - HDL RATIO 1.7 ratio (2.3-4.9); CHOLESTEROL, TOTAL 96 mg/dL (0-200); CKMB 1.1 U/L (0.0-3.6); CREATINE KINASE 41 UL (21-232); HDL CHOLESTEROL 56 mg/dL (32-96); LDL CHOLESTEROL 32 mg/dL (0-100); LDL-HDL RATIO 0.6 ratio (1.5-3.5); TRIGLYCERIDE 40 mg/dL (30-200); TROPONIN-I 0.018 ng/mL (0.000-0.060)
--- NOTE | 2016-11-08 23:12 | NUR ---
ADMIT TO ROOM 2115 FROM ER VIA WHEELCHAIR. ALERT. ASSISTED TO BED. ADMISSION HISTORY AND ASSESSMENT INITIATED. PLAN OF CARE IMPLEMENTED.
--- NOTE | 2016-11-09 00:33 | NUR ---
PT NOW RESTING IN BED, HAVE PLACED TELEMETRY ON HIM AND HE IS ST/101 WITH PVCS. PT IS CONFUSED TO PLACE/TIME AND SITUATION. HE THINKS THE TELEMETRY UNIT IS A BOMB. ORIENTED TO THE TELEMETRY UNIT AND ITS PURPOSE. BED ALARM ACTIVATED. WILL MONITOR.
[2016-11-09 02:54] VITALS: BP 127/58; BMI 22.2
--- NOTE | 2016-11-09 04:06 | NUR ---
PT AWAKE AND UP AT NURSING STATION. CONFUSED, CANNOT BE REORIENTED. WENT INTO ANOTHER PATIENT'S ROOM AND TURNED OVER HER BEDSIDE TABLE AND TOOK OUT HER BEDSIDE DRESSER DRAWERS. STAFF INTERVENED AND RETURNED PT TO HIS ROOM. HE WOULD NOT GET IN BED AND WOULD ONLY STAY IN BEDSIDE CHAIR OR RECLINER FOR A FEW BRIEF MINUTES BEFORE GETTING UP AND HEADING OUT HIS DOOR AGAIN. PT NOW STANDING.
[2016-11-09] MEDS ORDERED: ABILIFY10 MG PO (04:35)
--- NOTE | 2016-11-09 04:46 | NUR ---
ALLOWED PT TO WALK THE HALLWAY BY THE NURSES STATION WITH STAFF OBSERVING HIM. HE TURNED AND WALKED OUT OF SIGHT AND WHEN STAFF WENT TO GET HIM, HE COULD NOT BE LOCATED. BEGAN TO SEARCH HALLWAY BETWEEN UNITS AND WAS TOLD BY OTHER UNIT THAT THEY HAD SEEN A MAN OF HIS DESCRIPTION PASS JUST SECONDS AGO. SHAREPOINT SOLUTIONS DEVELOPER FROM MED SUR[facility] THEN HEARD THE EXIT DOOR ALARM RINGING AND STAFF IMMEDIATELY TO DOOR, DOWN THE STAIRS AND OUTSIDE WHERE PT WAS FOUND SITTING ON THE GROUND. WHEELCHAIR BOUGHT OUTSIDE AND PT PLACED IN IT AND BROUGHT BACK UP TO THE UNIT. NOTIFIED ICT PROJECT MANAGER. PAGE TO DR CRUZ AT 2622. AWAITING RETURN CALL. RETURN CALL FROM DR CRUZ AT 7288, REPORTED ALL OF PT'S ACTIVITIES AND RECIEVED ORDER FOR ATIVAN 0.5MG BY MOUTH THREE TIMES DAILY SCHEDULED.
--- NOTE | 2016-11-09 06:00 | NUR ---
PHONE CALL TO PT'S LISTED SISTER AND SPOKE WITH HER (MATHIEU). OBTAINED A PHONE NUMBER FROM HER TO BE ABLE TO SPEAK TO PATIENT'S SON. PHONE CALL TO SON, KRYSTEN, AND SPOKE WITH HIM ABOUT PT'S ACTIVITIES/BEHAVIORS. ALSO CLARIFIED THAT PT WOULD BE ABLE TO TAKE ATIVAN AND NOT HAVE AN ALLERGIC REACTION. SON IS NOT SURE WHY IT SAYS HE IS ALLERGIC TO [facility], AND IS OKAY WITH MED ORDERED BY DR CRUZ.
[2016-11-09 08:22] VITALS: BP 122/64
--- NOTE | 2016-11-09 10:09 | NUR ---
UP IN W/C AT NURSES STATION. VERY CONFUSED AND ANXIIOUS. WILL CONT. TO MONITOR.
[2016-11-09 11:46] VITALS: BP 104/73
--- NOTE | 2016-11-09 11:57 | NUR ---
Patient Name: JULIA FREIRE Encounter No: [id number] : 1940 Primary Insurance: MEDICARE A & B Anticipated DC Date: Planned Disposition: Nursing Facility KEO Cert External Planned Provider: [facility], [employer] MACHINE MECHANIC C[employer] MEDICAID BED DISCHARGE PLANNING NOTE: * Is the patient Alert and Oriented? No 0 * How many steps to enter\\exit or inside your home? NONE 0 * PCP DR. CRUZ 0 * Pharmacy [facility] 0 * Preadmission Environment Intermediate Assisted 0 * Facility Name [facility] 0 * ADLs Partial Dependent 0 * Partial ADLs (Assistance needed) Bathing Medication Management 0 * Equipment Other 0 * Other Equipment ALL MEDICAL EQUIPMENT PROVIDED BY FACILITY 0 * List name and contact numbers for known caregivers / representatives who currently or will assist patient after discharge: KRYSTEN FREIRE, SON , PEGGY, SISTER, 0 * Community resources currently utilized None 0 * Please name any agencies selected above. NONE 0 * Additional services required to return to the preadmission environment? Yes * Can the patient safely return to the preadmission environment? Yes 0 * Has this patient been hospitalized within the prior 30 days at any hospital? Yes 0 CM MET WITH PT AT NURSES STATION TO DISCUSS DISCHARGE PLANNING AND NEEDS. PT ORIENTED TO SELF ONLY. PT IN WHEELCHAIR AT NURSES STATION FOR ONE ON ONE SUPERVISION. PT REPORTS LIVING AT [facility] FOR THE LAST COUPLE OF MONTHS. PT HAS NO MEDICAL EQUIPMENT AND STATES HE USES NONE AT [facility]. PT DENIES DISCHARGE NEEDS AND IS SURE HE WILL RETURN TO THE SNF AT DISCHARGE. BARBARA DISCUSSED ALF AT [place], PT REMEMBERS GOING "DOWN THERE" RECENTLY AND STATES THERE WAS A HOT BERTIN RACE AND HE GOT TO WATCH. PT BEGAN TALKING ABOUT OTHER THINGS IN HIS PAST. CM ATTEMPTED REDIRECTION WITHOUT SUCCESS AND ASKED PT WHO ASSISTS WITH DECISIONS, PT STATES TO CALL HIS SON KRYSTEN. PT DOES NOT KNOW WHAT ALF DID FOR HIM AND DOES NOT KNOW HOW LONG HE WAS "DOWN THERE". CM CALLED KRYSTEN FREIRE, , TO DISCUSS POSSIBILITY OF PT GOING BACK TO ALF AND DISCUSS DISCHARGE PLANNING. CM LEFT MESSAGE ASKING FOR RETURN CALL. BARBARA CALLED ZACHARY CLINICAL LIAISON FOR [facility], , VERIFIED PT IS RESIDENT OF [facility]; ZACHARY ADVISED PT WAS JUST DISCHARGED OUT OF ALF BACK TO [facility]. ZACHARY ADVISED THAT [facility] WILL ACCEPT PT BACK AT DISCHARGE. FOR DISCHARGE BACK TO [facility], FAX DISCHARGE INFORMATION TO [facility] AT [phone]; NURSE REPORT TO BE CALLED TO [facility] AT [phone]. [facility] TO ARRANGE VAN TRANSPORT. Fletcher Nava, CASE MANAGEMENT
[2016-11-09 13:17] VITALS: Ht 177.8 cm; Wt 70.3 kg
[2016-11-09 16:03] VITALS: BP 129/57
--- NOTE | 2016-11-09 16:59 | NUR ---
Patient Name: JULIA FREIRE Encounter No: [id number] : 1940 Primary Insurance: MEDICARE A & B Anticipated DC Date: Planned Disposition: Nursing Facility [facility] External Planned Provider: JULIO C JUAREZS, LONG TERM MEDICAID BED DCP follow-up note: CM RECEIVED CALL FROM KRYSTEN TANI, , AND DISCUSSED DISCHARGE PLANNING. PLAN IS FOR PT TO RETURN TO [facility] FOR CONTINUED BEHAVIORAL HEALTH ASSISTANT CARE. BARBARA DISCUSSED POSSIBLE LONG-TERM PLACEMENT; KRYSTEN IS IN AGREEMENT IF RECOMMENDED BY THE DOCTOR HE FEELS PT MAY BE ON TOO MUCH OR THE WRONG MEDICATIONS REPORTING HIS FATHER SEEMS TO BE "DRUGGED UP." KRYSTEN REPORTS PT HAS BEEN IN LONG-TERM RECENTLY AND THEY ARE FAMILIAR WITH SERVICES THERE. FOR DISCHARGE BACK TO [facility], FAX DISCHARGE INFORMATION TO [facility] AT [phone]; NURSE REPORT TO BE CALLED TO [facility] AT [phone]. [facility] TO ARRANGE VAN TRANSPORT. Fletcher Nava, CASE MANAGEMENT
[2016-11-09] MEDS ORDERED: OMNICEF300 MG PO (18:33)
--- NOTE | 2016-11-09 20:19 | NUR ---
REPORT CALLED TO JEANNINE AND NIGHT MEDS GIVEN.
== END 2016-11-09 20:19 | disposition short-term general hospital (02) | DRG 190 ==
LOC: D.ER 16:30 → D.M2 22:00
PROVIDERS: Emergency Medicine; ADMIT Family Medicine
DX: J44.0 Chronic obstructive pulmonary disease with (acute) lower respiratory infection (principal); J18.9 Pneumonia, unspecified organism; F01.51 Vascular dementia, unspecified severity, with behavioral disturbance; Z72.0 Tobacco use; I10 Essential (primary) hypertension; I25.10 Atherosclerotic heart disease of native coronary artery without angina pectoris; E11.9 Type 2 diabetes mellitus without complications; E78.5 Hyperlipidemia, unspecified; D64.9 Anemia, unspecified; N40.0 Benign prostatic hyperplasia without lower urinary tract symptoms; H40.9 Unspecified glaucoma; K59.00 Constipation, unspecified; F32.9 Major depressive disorder, single episode, unspecified

== ENCOUNTER 2016-11-09 20:41 | Inpatient (IN) | payer MEDICARE ==
[~2016-11-09] VITALS: Ht 177.8 cm; Wt 65.3 kg
[~2016-11-09 20:41] MED LIST changes: +OMNICEF300 MG PO
--- NOTE | 2016-11-10 02:31 | NUR ---
Recieved patient via wheelchair from Med II, alert and oriented to self, HS medications given on med II, oriented to unit, ambulates without assist, belongings inventoried, will continue to monitor.
[2016-11-10 04:04] VITALS: BP 136/58; BMI 20.7
[2016-11-10 07:00] LABS: BASOPHILS 0.2 % (0.0-2.0); HEMATOCRIT 35.3 % (42.0-54.0); HEMOGLOBIN 11.5 g/dL (13.5-17.5); IMMATURE GRANULOCYTES 0.1 % (0-5); LYMPHOCYTES 17.2 % (15-50); MCH 26.4 pg (26.0-34.0); MCHC 32.6 g/dL (31.0-37.0); MCV 81.1 fL (80.0-100.0); MEAN PLATELET VOLUME 11.7 fL (7.4-10.4); MONOCYTES 12.2 % (2-11); NEUTROPHILS 68.3 % (40-80); PLATELET COUNT 235 10x3/uL (130-400); RBC 4.35 10x6/uL (4.20-6.10); RDW 15.3 % (11.5-14.5)
[2016-11-10 07:05] LABS: WBC 8.8 10x3/uL (4.8-10.8)
[2016-11-10 07:12] LABS: HEMOGLOBIN A1C 7.2 % (4.8-6.0)
[2016-11-10 07:36] LABS: ALBUMIN 2.6 g/dL (3.4-5.0); ALKALINE PHOSPHATASE 81 U/L (46-116); ALT (SGPT) 39 U/L (10-68); BILIRUBIN - TOTAL 0.44 mg/dL (0.2-1.3); CALCIUM 9.4 mg/dL (8.5-10.1); CARBON DIOXIDE 29.2 mmol/L (21.0-32.0); CHLORIDE - SERUM 107 mmol/L (98-107); CHOLESTEROL, TOTAL 100 mg/dL (0-200); CREATININE - SERUM 0.8 mg/dL (0.6-1.3); HDL CHOLESTEROL 51 mg/dL (32-96); LDL CHOLESTEROL 37 mg/dL (0-100); LDL-HDL RATIO 0.7 ratio (1.5-3.5); POTASSIUM - SERUM 3.8 mmol/L (3.5-5.1); PROTEIN - SERUM 6.9 g/dL (6.4-8.2); SODIUM 146 mmol/L (136-145); TRIGLYCERIDE 62 mg/dL (30-200); UREA NITROGEN 29 mg/dL (7-18); eGFR NON AFRICAN AMERICAN > 90 mL/min (90-120)
[2016-11-10 07:44] LABS: CALC OSMOLALITY 295 mosm/kg (275-300); GLUCOSE 84 mg/dL (74-106)
[2016-11-10 09:32] VITALS: BP 122/70
--- NOTE | 2016-11-10 11:30 | NUR ---
B) PATIENTS SISTER CALLED AND SHE SAID SHE FELT LIKE JULIA SHOULD BE TAKEN OFF OF HIS SCHIZOPHRENIC MEDICATION. LOOKED AT PATIENTS MED LIST AND EXPLAINED THAT HE WAS NOT ON ANY SCHIZOPHRENIC MEDS. SHE SAID "WELL, I HAVE THE NAME OF IT" SHE SPELLED ARIPIPRAZOLE, EXPLAINED TO HER THAT THAT MEDICATION FOR HIM IS USED FOR HIS DEPRESSION. SHE SAID SHE FELT LIKE THIS MED MADE HIM WORSE, EXPLAINED TO HER THAT I WOULD LET THE PSYCHIATRIST KNOW HER CONCERNS, BUT IT WOULD BE UP TO THE DR. TO DECIDE THE MEDICATIONS FOR THE PATIENT. PATIENT IS AWAKE AND HE KNOWS HIS NAME AND KNOWS HE IS IN A HOSPITAL, HE IS NOT SURE THE NAME OF IT. HE IS SAD, FLAT TO BLUNTED AND DEPRESSED. ISOLATIVE AND WITHDRAWN. HE AMBULATES INDEPENDENTLY. I) PROVIDE PRESCRIBED MEDS. R) PATIENT IS COMPLIANT WITH MEDS, HE HAS NOT SHOWN ANY AGGRESSION OR ANY PARANOIA TODAY. P) CONTINUE PLAN OF CARE.
[2016-11-10 14:47] VITALS: Ht 177.8 cm; Wt 65.3 kg
[2016-11-10 19:31] VITALS: BP 116/51
--- NOTE | 2016-11-11 03:46 | PSY ---
PATIENT NAME:JULIA FREIRE MEDICAL RECORD: [id number] : 42 LOCATION:[facility] ADMISSION DATE: 11/09/16 ACCOUNT: [id number] PSYCHIATRIC EVALUATION DATE OF EVALUATION: 11/10/16 IDENTIFYING DATA: A second [facility] admission for this 76-year-old single white male. HISTORY OF PRESENT ILLNESS: This patient was recently admitted to [facility] between 10/14/2016 and 11/02/2016. He carries a diagnosis of vascular dementia as well as depression. At the time of the original admission, the patient was essentially homeless. During the course of hospitalization, the patient was stabilized and placed on antidepressant medication and placed in a snf. The patient was readmitted because of chest pain. On this occasion, he was admitted initially to the medical floor. He was noted to be extremely confused, wandering, exit seeking and easily agitated. Once the patient was stabilized medically, he was transferred back to [facility]. PAST MEDICAL HISTORY: Significant for hypertension, COPD, atherosclerotic heart disease, type 2 diabetes, hyperlipidemia, benign prostatic hyperplasia, anemia, glaucoma, and acute pneumonitis. FAMILY HISTORY: Noncontributory. SOCIAL HISTORY: The patient is a snf resident. No history of recent substance abuse problems. He has a sister who is involved in his care. He is disabled. ALLERGIES: LISTED KLONOPIN. MENTAL STATUS EXAMINATION: On interview, the patient appears to be in a dysphoric mood. Affect is overall constricted. Speech is terse and somewhat tangential. Content of thought is positive for expressions of hopelessness. On sensorium testing, the patient is oriented to person and the fact that he is hospitalized at [facility] [facility]. He is not oriented correctly as to time. Memory shows global impairment at all areas. Insight is very limited. DIAGNOSTIC IMPRESSION: AXIS I: Vascular dementia, secondary depression. AXIS II: No diagnosis. AXIS III: Hypertension, chronic obstructive pulmonary disease, type 2 diabetes, hyperlipidemia, anemia, glaucoma, benign prostatic hyperplasia. AXIS IV: Moderate. AXIS V: 36. PLAN: 1. The patient is admitted for medication revision as indicated. 2. Diet and activity as tolerated. 3. Daily supportive therapy. TRANSINT:[id number] Voice Confirmation ID: [id number] DOCUMENT ID: [id number] YOAN RIVERA, RAGHU Lozoya MD at 0346 CC: [id number] DICTATION DATE: 11/10/16 1205 FRONT DESK COORDINATOR: 11/10/16 1239 ADM IN [facility] [address] [id number]
[2016-11-11 06:13] LABS: RAPID PLASMA REAGIN Non Reactive (Non Reactive)
[2016-11-11 08:09] VITALS: BP 130/62
[2016-11-11 08:16] LABS: FOLATE (FOLIC ACID) - SERUM 15.7 ng/mL (>3.0)
--- NOTE | 2016-11-11 18:30 | NUR ---
SEE ASSESSMENT FLOW SHEET.HAS BEEN CALM AND COMPLIANT WITH STAFF AND PEERS TODAY.HAS 3 HEALING SCABBED SORES TO LEFT FOREARM,NO SIGNS OF INFECTION.WILL CONTINUE WITH PLAN OF CARE,MONITOR FOR CHANGES AND SAFETY.
[2016-11-11 19:30] VITALS: BP 128/57
--- NOTE | 2016-11-11 21:00 | NUR ---
REPORT RECEIVED AND CARE ASSUMED. AMBULATES INDEPENDENTLY. REMAINS CALM AND COOPERATIVE WITH STAF AND CARE. ASSESSMENT COMPLETED PER FLOW SHEET. HE IS MEDICATION COMPLIANT. REMAINS CONFUSED TONIGHT. CONTINUE PLAN OF CARE.
[2016-11-12 07:54] VITALS: BP 130/46
[2016-11-12 19:30] VITALS: BP 101/52
--- NOTE | 2016-11-12 20:31 | NUR ---
RECEIVED IN DAYROOM. SITTING IN CHAIR AT TABLE WITH STAFF AND PEERS AT HIS SIDE. CALM AND COOPERATIVE WITH CARE AND ASSESSMENTS. ENCOURAGE TO EXPRESS NEEDS. CONTINUES TO SIT QUIETLY IN CHAIR. CONTINUE PLAN OF CARE
--- NOTE | 2016-11-12 21:40 | NUR ---
Patient was resting in dayroom, compliant with medication. Oriented to Self and place. Patient reoriented. He has been calm but isolated. continue to monitor.
[2016-11-13 07:10] LABS: VITAMIN D 25 HYDROXY 19.8 ng/mL (30.0-100.0)
--- NOTE | 2016-11-13 07:36 | PN ---
PATIENT:JULIA FREIRE MEDICAL RECORD: [id number] LOCATION:[facility] ADMISSION DATE: 11/09/16 PROGRESS NOTE DATE OF SERVICE: 11/11/2016 SUBJECTIVE: No new complaint. OBJECTIVE: The patient continues to show extremely constricted affect. He has been passively cooperative, but remains confused. On exam, mood is dysphoric, affect is constricted. Speech is low in volume and terse. Content of thought is positive for expressions of hopelessness. Sensorium shows no change. ASSESSMENT: No change in diagnosis. PLAN: 1. Maintain current medication. 2. Continue supportive therapy. TRANSINT:[id number] Voice Confirmation ID: [id number] DOCUMENT ID: [id number] RAGHU MILTON III, MD at 0736 CC: [id number] DICTATION DATE: 11/11/16 1140 VANSTONE MACHINE OPERATOR: 11/11/16 1620 ADM IN [facility] [address] [place] [address]
[2016-11-13 08:02] VITALS: BP 143/86
--- NOTE | 2016-11-13 08:05 | NUR ---
B.) Alert and oriented to nam only, some what to place. " I think in hospital some where, because my sister turned it in that I was going to hurt myself." I.) Administer medications and monitor compliance, redirect and reorinet as need. Monitor for any suicidial ideations and contract for safety. Monitor for any exit seeking behavior. R.) Compliant with medications. Reorients to place, no suicidial ideations, contracted for no self harm. Sits quietly at table. Safety maintained. P.) Continue with plan of care.
[2016-11-13 19:30] VITALS: BP 136/62
--- NOTE | 2016-11-13 20:43 | NUR ---
RECEIVED IN DINING ROOM AREA. SITTING IN A CHIAR WITH EYES CLOSED. RESPONDS TO VOICE. CALM AND COOPEATIVE WITH CARE AND ASSESSMENTS. CONFUSED. REORIENT NEEDED. ENCOURAGE TO EXPRESS NEEDS. CONTINUE PLAN OF CARE
[2016-11-14 07:00] VITALS: BP 138/61
--- NOTE | 2016-11-14 08:36 | PN ---
PATIENT:JULIA FREIRE MEDICAL RECORD: [id number] LOCATION:[facility] ADMISSION DATE: 11/09/16 PROGRESS NOTE DATE OF SERVICE: 11/13/2016 SUBJECTIVE: No new complaint. OBJECTIVE: The patient has been considerably better over the weekend. He has been cooperative in terms of taking medications. Mood is more euthymic. No evidence of paranoid delusional ideation. On exam, mood is more or less euthymic. Affect is reserved. Speech is rather terse. Content of thought is negative for psychosis or suicidality. Sensorium is unchanged. ASSESSMENT: No change in diagnosis. PLAN: 1. Maintain current treatment plan. 2. Anticipate discharge tomorrow. TRANSINT:[id number] Voice Confirmation ID: [id number] DOCUMENT ID: [id number] RAGHU MILTON III, MD at 0836 CC: [id number] DICTATION DATE: 11/13/16 1159 CARDIAC REHAB NURSE: 11/13/16 1536 ADM IN [id number] [place] [address]
[2016-11-14] MEDS ORDERED: VITAMIN D5000 UNIT PO (08:38)
[2016-11-14] MEDS ORDERED: Vitamin D PO (08:38)
--- NOTE | 2016-11-14 10:20 | NUR ---
Patient discharged with no incident, transported via [facility] transportation.
--- NOTE | 2016-11-14 14:04 | NUR ---
Nutrition Follow Up: Chart reviewed. Pt is eating 75% meal avg on a diabetic diet. +BM 11/13/16. Meds noted including Metformin. Labs reviewed. Rec continue current diet. RD following.
--- NOTE | 2016-11-14 14:43 | NUR ---
Received this am. alert and oriented to name and place, some what understands reason for hospitalization. " Well, I was just looking around the place and they sent me away." Administer medications and monitor compliance. Redirect for any inappropriate behavior. Educate on discharge today. Monitor safety. Compliant with medications. Pleasant and calm behavior. Cooperative with care. Good behavior control. Social with others. Continue with discharge for today.
--- NOTE | 2016-11-15 09:43 | DS ---
PATIENT:JULIA FREIRE :42 MEDICAL RECORD: [id number] DISCHARGE SUMMARY ADMISSION DATE: 11/09/16 DISCHARGE DATE: 11/14/16 DATE OF ADMISSION: 11/09/2016 DATE OF DISCHARGE: 11/14/2016 HISTORY OF PRESENT ILLNESS: This was the Second skilled nursing admission for this 76-year-old white male. The patient carries a diagnosis of vascular dementia as well as depression. He is a resident of a local shelter. He had been readmitted due to chest pain. He exhibited confusion and wandering behavior as well as agitation while on the medical floor and was transferred back to [facility]. For further details, please see previously dictated history. COURSE IN THE HOSPITAL: The patient was reexamined by Dr. Escobedo, who noted the ongoing medical problems inclusive of pneumonitis, constipation, COPD, hypertension, atherosclerotic heart disease, type 2 diabetes, hyperlipidemia, anemia, and benign prostatic hyperplasia. The patient was treated with essentially the same medication regimen that he had been prescribed previously and this included vitamin D supplements, MiraLax, Cymbalta 60 mg daily, Wellbutrin-XL 300 mg daily, Lipitor, Namenda 10 mg twice a day, Xalatan eyedrops, Colace, Omnicef, Glucophage, Coreg, Proventil, Proscar, hydrochlorothiazide, aspirin, lisinopril, Abilify 10 mg daily. The patient did very well, he showed quick resolution of his depressive symptoms and agitation by the time of discharge, he was entirely stable to return to the shelter environment. FINAL DIAGNOSES: AXIS I: Vascular dementia, major depressive disorder. AXIS II: No diagnosis. AXIS III: Hypertension, chronic obstructive pulmonary disease, type 2 diabetes, hyperlipidemia, anemia, glaucoma, benign prostatic hyperplasia. AXIS IV: Moderate. AXIS V: 40. PLAN: 1. The patient is discharged on current medication. 2. Diet and activities as tolerated. 3. Follow up through shelter physician. TRANSINT:[id number] Voice Confirmation ID: [id number] DOCUMENT ID: [id number] RAGHU MILTON III, MD at 0943 CC: [id number] DICTATION DATE: 11/14/16 1132 MID LEVEL CLINICIAN: 11/15/16 0335 DIS IN 11/14/[id number] [place] [address]
== END 2016-11-14 10:20 | DRG 881 ==
LOC: D.PSYCH 20:41
PROVIDERS: ADMIT Psychiatry & Neurology Psychiatry
DX: F32.9 Major depressive disorder, single episode, unspecified (principal); J18.9 Pneumonia, unspecified organism; F01.51 Vascular dementia, unspecified severity, with behavioral disturbance; I10 Essential (primary) hypertension; J44.9 Chronic obstructive pulmonary disease, unspecified; E11.40 Type 2 diabetes mellitus with diabetic neuropathy, unspecified; E78.5 Hyperlipidemia, unspecified; N40.0 Benign prostatic hyperplasia without lower urinary tract symptoms; H40.9 Unspecified glaucoma; D64.9 Anemia, unspecified; K59.00 Constipation, unspecified; Z91.81 History of falling; I25.10 Atherosclerotic heart disease of native coronary artery without angina pectoris; E55.9 Vitamin D deficiency, unspecified; Z72.0 Tobacco use

== ENCOUNTER 2018-01-01 15:47 | Emergency (ER) | payer MEDICARE ==
[~2018-01-01] VITALS: Ht 177.8 cm; Wt 81.8 kg
[~2018-01-01 15:47] MED LIST changes: +VITAMIN D5000 UNIT PO; +Vitamin D PO
[2018-01-01 15:52] VITALS: Ht 177.8 cm; Wt 81.8 kg
[2018-01-01 16:20] LABS: BASOPHILS 0.3 % (0-2); EOSINOPHILS 3.7 % (0-7); HEMATOCRIT 25.8 % (42.0-54.0); HEMOGLOBIN 8.2 g/dL (13.5-17.5); IMMATURE GRANULOCYTES 0.2 % (0-5); LYMPHOCYTES 10.8 % (15-50); MCH 25.3 pg (26.0-34.0); MCHC 31.8 g/dL (31.0-37.0); MCV 79.6 fL (80.0-100.0); MEAN PLATELET VOLUME 11.1 fL (7.4-10.4); MONOCYTES 10.8 % (2-11); NEUTROPHILS 74.2 % (40-80); PLATELET COUNT 296 10x3/uL (130-400); RBC 3.24 10x6/uL (4.20-6.10); RDW 16.9 % (11.5-14.5); WBC 9.5 10x3/uL (4.8-10.8)
[2018-01-01 16:35] LABS: ALBUMIN 2.5 g/dL (3.4-5.0); ANION GAP 13.4 mmol/L (8-16); BILIRUBIN - TOTAL 0.18 mg/dL (0.2-1.3); CALCIUM 9.5 mg/dL (8.5-10.1); CARBON DIOXIDE 28.2 mmol/L (21.0-32.0); CREATININE - SERUM 1.6 mg/dL (0.6-1.3); POTASSIUM - SERUM 4.6 mmol/L (3.5-5.1); PROTEIN - SERUM 7.6 g/dL (6.4-8.2)
[2018-01-01 18:55] VITALS: BP 159/62
== END 2018-01-01 18:55 ==
LOC: D.ER 15:47
PROVIDERS: Family Medicine
DX: D64.9 Anemia, unspecified (principal); F03.90 Unspecified dementia, unspecified severity, without behavioral disturbance, psychotic disturbance, mood disturbance, and anxiety; J44.9 Chronic obstructive pulmonary disease, unspecified

== ENCOUNTER 2018-01-16 15:38 | Inpatient (IN) | payer MEDICARE, MEDICAID ==
[~2018-01-16] VITALS: Ht 177.8 cm; Wt 74.8 kg
--- NOTE | ~2018-01-16 | EC ---
PATIENT:JULIA FREIRE DATE OF SERVICE: 01/16/18 SEX: M MEDICAL RECORD: [id number] DATE OF : 42 LOCATION:D. D.212 AGE OF PATIENT: 78 ADMISSION DATE: 01/16/18 REFERRING PHYSICIAN: INTERPRETING PHYSICIAN: JACQUES LOO MD ECHOCARDIOGRAM REPORT ECHO CHARGES 4 ECHO COMPLETE Date: 01/17 CLINICAL DIAGNOSIS: CHF/SOB ECHOCARDIOGRAPHIC MEASUREMENTS (adult normal given) AC root (d.<3.7cm) 3.2 cm LV Septum d (<1.2 cm> 1.1 cm Valve Excursion 1.4 cm LV Septum (systole) 1.2 cm Left Atria (s.<4.0cm> 5.1 cm LVPW d(<1.2cm) 1.3 cm RV (d.<2.3cm) 4.2 cm LVPW (sytole) 1.5 cm LV diastole(<5.6CM) 6.5 cm MV E-F(>70mm/sec) cm LV systole 5.9 cm LVOT Diameter 1.7 cm MV exc.(>10mm) 1.8 cm Est.ejection fraction (50-75%) % DOPPLER: LVIT cm/sec A cm/sec E cm/sec LA cm/sec RVSP 59 mmHg LVOT 91 cm/sec AOP1/2T m/s Asc. Ao 166 cm/sec RVOT 61 cm/sec RA cm/sec PA 100 cm/sec AV Gradient Peak 11.07mmHg AV Mean 5.82 mmHg AV Area 1.1 cm MV Gradient Peak 6.28 mmHg MV Mean 2.75 mmHg MV Area cm COMMENTS: Electrical Systems Engineer: Sandip MEDINA Professional Volleyball Player: 1 Dr. Loo TAPE# PACS Pericardial Effusion N DATE OF SERVICE: 01/17/2018 PROCEDURE: Echocardiogram. FINDINGS: 1. Left ventricular chamber size is mildly dilated. Left ventricular systolic function is markedly reduced, overall ejection fraction 20% to 25%. 2. Left atrium is enlarged at 5.1 cm. Right atrium and right ventricular chamber sizes are as well mildly dilated. 3. Valvular structures have normal structure and motion. ECHOCARDIOGRAM REPORT [id number] JULIA FREIRE 4. Doppler interrogation reveals mild to moderate aortic insufficiency, moderate to severe mitral regurgitation, moderate to severe tricuspid regurgitation, no other valvular insufficiency or stenosis. Pulmonary systolic pressure is elevated estimated 59 mmHg. 5. No evidence of pericardial effusion or left ventricular thrombus. TRANSINT:[id number] Voice Confirmation ID: [id number] DOCUMENT ID: [id number] JACQUES LOO MD at 1614 CC: [id number] DICTATION DATE: 01/17/18 1228 UTILITY MAINTENANCE WORKER: 01/17/18 1235 ADM [address] [place] [address]
[2018-01-16] MEDS ORDERED: ERGOCALCIF50000 UNI1 PO (16:01)
[2018-01-16] MEDS ORDERED: MULTIPLE VITAMI1 TA1 PO (16:02)
[2018-01-16] MEDS ORDERED: FERROUS SULFAT325 MG PO (16:02)
[2018-01-16] MEDS ORDERED: MIRALAX17 GM PO (16:03)
[2018-01-16] MEDS ORDERED: LANTUS INSULIN10 ML SC (16:03)
[2018-01-16 17:19] LABS: BASOPHILS 0.2 % (0-2); EOSINOPHILS 1.8 % (0-7); HEMATOCRIT 28.1 % (42.0-54.0); HEMOGLOBIN 8.7 g/dL (13.5-17.5); IMMATURE GRANULOCYTES 0.2 % (0-5); LYMPHOCYTES 10.5 % (15-50); MCH 24.6 pg (26.0-34.0); MCV 79.6 fL (80.0-100.0); MEAN PLATELET VOLUME 11.5 fL (7.4-10.4); MONOCYTES 11.2 % (2-11); NEUTROPHILS 76.1 % (40-80); PLATELET COUNT 346 10x3/uL (130-400); RBC 3.53 10x6/uL (4.20-6.10); RDW 17.4 % (11.5-14.5); WBC 10.3 10x3/uL (4.8-10.8)
[2018-01-16 17:39] LABS: ALBUMIN 2.4 g/dL (3.4-5.0); ANION GAP 11.9 mmol/L (8-16); BILIRUBIN - TOTAL 0.14 mg/dL (0.2-1.3); CARBON DIOXIDE 30.4 mmol/L (21.0-32.0); CREATININE - SERUM 1.1 mg/dL (0.6-1.3); POTASSIUM - SERUM 4.3 mmol/L (3.5-5.1); PROTEIN - SERUM 7.3 g/dL (6.4-8.2)
[2018-01-16 18:06] LABS: APTT 44.1 SECONDS (22.8-39.4); INR 1.23 (0.85-1.17); PROTIME 15.1 SECONDS (11.6-15.0)
[2018-01-16 20:00] VITALS: BP 121/71
[2018-01-16 20:29] LABS: APPEARANCE HAZY (CLEAR); BILIRUBIN NEGATIVE (NEGATIVE); COLOR YELLOW (YELLOW); GLUCOSE NEGATIVE (NEGATIVE); KETONE NEGATIVE (NEGATIVE); NITRITE POSITIVE (NEGATIVE); PROTEIN 1+ mg/dL (NEGATIVE); UROBILINOGEN NORMAL (NORMAL)
[2018-01-16 20:30] LABS: BACTERIA MANY /hpf (NONE SEEN); MUCUS <1+ /lpf (NONE SEEN); RED CELLS - URINE 0-5 /hpf (0-5); WHITE CELLS - URINE >50 /hpf (0-5)
[2018-01-16 20:44] LABS: TROPONIN-I 0.036 ng/mL (0.000-0.060)
[2018-01-17] VITALS (7 sets, daily range): BP systolic 110–147; BP diastolic 58–88; Ht 177.8 cm; Wt 74.8 kg
[2018-01-18 05:14] VITALS: BP 109/77
[2018-01-18 07:13] LABS: ALBUMIN 2.6 g/dL (3.4-5.0); ANION GAP 15.5 mmol/L (8-16); BILIRUBIN - TOTAL 0.41 mg/dL (0.2-1.3); CALCIUM 9.2 mg/dL (8.5-10.1); CARBON DIOXIDE 30.2 mmol/L (21.0-32.0); CHOL - HDL RATIO 2.6 ratio (2.3-4.9); CREATININE - SERUM 1.4 mg/dL (0.6-1.3); LDL-HDL RATIO 1.4 ratio (1.5-3.5); MAGNESIUM - SERUM 1.7 mg/dL (1.8-2.4); POTASSIUM - SERUM 4.7 mmol/L (3.5-5.1); PROTEIN - SERUM 7.9 g/dL (6.4-8.2); THYROID STIMULATING HORMONE 12.2 uIU/mL (0.36-3.74)
[2018-01-18 08:01] VITALS: BP 126/78
[2018-01-18 11:32] VITALS: BP 134/71
[2018-01-18 15:38] VITALS: BP 138/67
[2018-01-18 20:33] VITALS: BP 111/72
[2018-01-19 00:46] VITALS: BP 110/74
[2018-01-19 05:19] LABS: BASOPHILS 0.1 % (0-2); EOSINOPHILS 0 % (0-7); HEMOGLOBIN 8.3 g/dL (13.5-17.5); IMMATURE GRANULOCYTES 0.3 % (0-5); LYMPHOCYTES 8.2 % (15-50); MCH 24.3 pg (26.0-34.0); MCHC 30.7 g/dL (31.0-37.0); MCV 78.9 fL (80.0-100.0); MEAN PLATELET VOLUME 11.2 fL (7.4-10.4); MONOCYTES 9.7 % (2-11); NEUTROPHILS 81.7 % (40-80); PLATELET COUNT 314 10x3/uL (130-400); RBC 3.42 10x6/uL (4.20-6.10); RDW 17.6 % (11.5-14.5); WBC 11.4 10x3/uL (4.8-10.8)
[2018-01-19 05:43] VITALS: BP 94/68
[2018-01-19 05:50] LABS: CALCIUM 9.2 mg/dL (8.5-10.1); CARBON DIOXIDE 27.1 mmol/L (21.0-32.0); MAGNESIUM - SERUM 1.8 mg/dL (1.8-2.4)
[2018-01-19 05:52] LABS: ANION GAP 20.6 mmol/L (8-16); CREATININE - SERUM 2.1 mg/dL (0.6-1.3); PHOSPHOROUS 5.4 mg/dL (2.5-4.9); POTASSIUM - SERUM 5.7 mmol/L (3.5-5.1)
[2018-01-19 08:25] VITALS: BP 123/86
[2018-01-19 11:02] VITALS: BP 132/82
[2018-01-19 16:13] VITALS: BP 130/74
[2018-01-19 20:00] VITALS: BP 130/69
[2018-01-20] VITALS: BP 143/87
[2018-01-20 04:00] VITALS: BP 131/72
[2018-01-20 06:37] LABS: BASOPHILS 0.1 % (0-2); EOSINOPHILS 0.5 % (0-7); HEMATOCRIT 26.6 % (42.0-54.0); HEMOGLOBIN 8.4 g/dL (13.5-17.5); IMMATURE GRANULOCYTES 0.3 % (0-5); LYMPHOCYTES 10.9 % (15-50); MCH 24.5 pg (26.0-34.0); MCHC 31.6 g/dL (31.0-37.0); MCV 77.6 fL (80.0-100.0); MEAN PLATELET VOLUME 11.3 fL (7.4-10.4); NEUTROPHILS 80.2 % (40-80); PLATELET COUNT 266 10x3/uL (130-400); RBC 3.43 10x6/uL (4.20-6.10); RDW 17.6 % (11.5-14.5); WBC 10.2 10x3/uL (4.8-10.8)
[2018-01-20 07:13] LABS: CALCIUM 8.9 mg/dL (8.5-10.1); CARBON DIOXIDE 27.2 mmol/L (21.0-32.0); CREATININE - SERUM 1.9 mg/dL (0.6-1.3)
[2018-01-20 07:18] LABS: ANION GAP 16.5 mmol/L (8-16); POTASSIUM - SERUM 4.7 mmol/L (3.5-5.1)
[2018-01-20 08:00] VITALS: BP 129/68
[2018-01-20 08:45] VITALS: BP 126/64
[2018-01-20 11:12] VITALS: BP 132/68
[2018-01-21] VITALS: BP 133/66
[2018-01-21 04:00] VITALS: BP 113/66
[2018-01-21 05:28] LABS: BASOPHILS 0.1 % (0-2); EOSINOPHILS 2.7 % (0-7); HEMOGLOBIN 10.2 g/dL (13.5-17.5); IMMATURE GRANULOCYTES 0.5 % (0-5); MCH 24.8 pg (26.0-34.0); MCHC 31.1 g/dL (31.0-37.0); MEAN PLATELET VOLUME 11.4 fL (7.4-10.4); MONOCYTES 8.6 % (2-11); NEUTROPHILS 79.1 % (40-80); PLATELET COUNT 288 10x3/uL (130-400); RBC 4.11 10x6/uL (4.20-6.10); RDW 18.2 % (11.5-14.5); WBC 9.8 10x3/uL (4.8-10.8)
[2018-01-21 05:29] LABS: HEMATOCRIT 32.8 % (42.0-54.0); MCV 79.8 fL (80.0-100.0)
[2018-01-21 06:16] LABS: CALCIUM 9.4 mg/dL (8.5-10.1); CARBON DIOXIDE 30.7 mmol/L (21.0-32.0); CREATININE - SERUM 1.7 mg/dL (0.6-1.3)
[2018-01-21 06:18] LABS: ANION GAP 16.2 mmol/L (8-16); POTASSIUM - SERUM 3.9 mmol/L (3.5-5.1)
[2018-01-21 08:10] VITALS: BP 118/64
[2018-01-21 11:31] VITALS: BP 128/56
[2018-01-21 15:57] VITALS: BP 138/55
[2018-01-21 20:00] VITALS: BP 124/64
[2018-01-22 04:00] VITALS: BP 143/71
[2018-01-22 08:32] VITALS: BP 135/67
[2018-01-22 11:31] VITALS: BP 123/65
[2018-01-22] MEDS ORDERED: BROVANA15 MCG/2 M INH (14:03)
[2018-01-22] MEDS ORDERED: IPRAT-ALBUT 0.5-3 ML UPD (14:04)
[2018-01-22] MEDS ORDERED: LASIX20 MG PO (14:05)
[2018-01-22] MEDS ORDERED: ENTRESTO 24 MG1 EACH PO (14:05)
[2018-01-22] MEDS ORDERED: PULMICORT0.5 MG/21 UPD (14:06)
[2018-01-22 16:54] VITALS: BP 101/65
[2018-01-23 18:07] LABS: AEROBE ID Final report (()); RESULT 1 Klebsiella oxytoca (())
== END 2018-01-22 17:53 | DRG 291 ==
LOC: D.ER 15:38 → D.M2 21:41 → D.EDHOLD 21:41 → D.M2 22:09 → D.SDCHOLD 01-17 11:35 → D.M2 01-22 17:53
PROVIDERS: Family Medicine
DX: I13.0 Hypertensive heart and chronic kidney disease with heart failure and stage 1 through stage 4 chronic kidney disease, or unspecified chronic kidney disease (principal); I50.21 Acute systolic (congestive) heart failure; N39.0 Urinary tract infection, site not specified; F02.81 Dementia in other diseases classified elsewhere, unspecified severity, with behavioral disturbance; N17.9 Acute kidney failure, unspecified; I42.9 Cardiomyopathy, unspecified; G30.9 Alzheimer's disease, unspecified; J44.9 Chronic obstructive pulmonary disease, unspecified; F32.9 Major depressive disorder, single episode, unspecified; D64.9 Anemia, unspecified; N40.0 Benign prostatic hyperplasia without lower urinary tract symptoms; I25.10 Atherosclerotic heart disease of native coronary artery without angina pectoris; E03.9 Hypothyroidism, unspecified; E78.5 Hyperlipidemia, unspecified; N18.9 Chronic kidney disease, unspecified; E11.22 Type 2 diabetes mellitus with diabetic chronic kidney disease; I08.3 Combined rheumatic disorders of mitral, aortic and tricuspid valves; H40.9 Unspecified glaucoma; K59.09 Other constipation; Z72.0 Tobacco use; Y95 Nosocomial condition; B35.6 Tinea cruris; Z86.718 Personal history of other venous thrombosis and embolism

== ENCOUNTER 2018-02-04 16:58 | Emergency (ER) | payer MEDICARE ==
[~2018-02-04] VITALS: Ht 177.8 cm; Wt 90.9 kg
[~2018-02-04 16:58] MED LIST changes: +BROVANA15 MCG/2 M INH; +ENTRESTO 24 MG1 EACH PO; +ERGOCALCIF50000 UNI1 PO; +IPRAT-ALBUT 0.5-3 ML UPD; +LANTUS INSULIN10 ML SC; +LASIX20 MG PO; +MULTIPLE VITAMI1 TA1 PO; +PULMICORT0.5 MG/21 UPD
[2018-02-04 17:06] VITALS: Ht 177.8 cm; Wt 90.9 kg
[2018-02-04 22:16] VITALS: BP 108/68
== END 2018-02-04 22:16 | disposition home or self-care (01) ==
LOC: D.ER 16:58
DX: Z91.81 History of falling (principal); F03.90 Unspecified dementia, unspecified severity, without behavioral disturbance, psychotic disturbance, mood disturbance, and anxiety; W19.XXXA Unspecified fall, initial encounter; Y93.89 Activity, other specified; Y92.129 Unspecified place in nursing home as the place of occurrence of the external cause; E11.9 Type 2 diabetes mellitus without complications; H40.9 Unspecified glaucoma; J44.9 Chronic obstructive pulmonary disease, unspecified; I10 Essential (primary) hypertension